=== PATIENT | male | born 1990 | race Caucasian/White ===

== ENCOUNTER → 2024-02-19 | Outpatient (BNVA) | payer MEDICAID, SELFPAY | END | disposition home or self-care (01) | PROVIDERS: PCP Physician Assistant; Referring Provider Physician Assistant; Visit Provider Urology | DX: N13.2 Hydronephrosis with renal and ureteral calculous obstruction (principal); N40.0 Benign prostatic hyperplasia without lower urinary tract symptoms; I10 Essential (primary) hypertension; Z87.442 Personal history of urinary calculi; E66.01 Morbid (severe) obesity due to excess calories; Z68.37 Body mass index [BMI] 37.0-37.9, adult; F17.210 Nicotine dependence, cigarettes, uncomplicated | CPT/HCPCS: 81003; 99212; G0463 ==

== ENCOUNTER 2024-03-05 10:45 | Day surgery (SDC) | payer MEDICAID, SELFPAY ==
[2024-03-04 10:59] VITALS: BMI 37.6
--- NOTE | 2024-03-04 11:21 | EKG_ITS ---
[facility] Test Date: 2024-03-04 Pat Name: JOSE C LINK Department: Room: - Gender: Male Corporate Training Manager: CAROLIN : 1990 Requested By: Sha Alicea Order Number: [id number] Reading MD: Sha Alicea Measurements Intervals [place] Rate: 74 P: 24 TN: 125 QRS: 38 QRSD: 97 T: 72 QT: 387 QTc: 430 Interpretive Statements SINUS RHYTHM Compared to ECG 03/03/2020 18:42:11 No significant changes /store/S0/[id number].pdf
[2024-03-04 13:45] LABS: Alanine Aminotransferase 34 U/L (10-49); Albumin, Serum 4.6 gm/dL (3.5-5.0); Albumin/Globulin Ratio 1.8 (1.2-2.2); Alkaline Phosphatase 113 U/L (46-116); Anion Gap 6 (7-16); Aspartate Amino Transferase 13 U/L (0-34); BUN/Creatinine Ratio 12 Ratio (12-20); Bilirubin,Total 0.9 mg/dL (0.3-1.2); Blood Urea Nitrogen 16 mg/dL (9-23); Calcium 9.5 mg/dL (8.3-10.6); Calcium (Corrected) 9.5 mg/dL (8.5-10.1); Carbon Dioxide 27.6 mMol/L (20.0-31.0); Chloride 106 mMol/L (98-107); Creatinine (Component) 1.3 mg/dL (0.6-1.3); Estimated Creatinine Clearance 109.8 mL/min (>60); Globulin 2.6 gm/dL (2.3-3.5); Glucose 100 mg/dL (74-106); Osmolality,Calculated 280 (275-295); Potassium 3.8 mMol/L (3.4-5.1); Sodium 140 mMol/L (136-145); Total Protein 7.2 gm/dL (5.7-8.2); eGFR > 60 See Note
[2024-03-05] VITALS (9 sets, daily range): BP systolic 125–143; BP diastolic 82–94; PULSE 60–80; RESP 12–20; TEMP 36.1–36.4; O2SAT 95–100; BMI 37.3
[2024-03-05] MEDS: RINGERS LACTATED 500 ML 500 ML 20 ML IV (11:13)
[2024-03-05] MEDS: VANCOMYCIN/NS 1 GM IVPB 200 ML IV (11:13)
--- NOTE | 2024-03-05 15:58 | SUR.PHASEI ---
pt received from OR in recovery bay 5. pt asleep but responds to voice, breathing unlabored on 6l oxymask. v/s stable. report received from Dr. Inman and Steve MONCADA.
--- NOTE | 2024-03-05 16:19 | ESOP_ITS ---
Date of Procedure 03/05/24 Pre Op Diagnosis Right hydronephrosis, 1.1 cm stone proximal ureter close to ureteropelvic junction right causing obstruction Post Op Diagnosis Same plus completely obstructive stone Procedure Cystoscopic examination, right retrograde pyelogram, attempted placement of right ureteral stent Findings Impacted right ureteral stone proximal near right UPJ, right hydronephrosis Procedure Description Indication for procedure this is 33-year-old gentleman this patient has a history of stone disease. He had impacted stone right proximal ureter in the past about 4 years ago, he had placement of percutaneous nephrostomy subsequently he had laser stone fragmentation done at [facility] by Dr. Lopez. Patient was recently seen because of right flank pain and was found to have 1.1 cm stone proximal ureter with hydronephrosis. I discussed with the patient about placement of percutaneous nephrostomy right side considering that he had a impacted stone previously and it may be difficult to insert the right ureteral stent . Patient did not entertain the idea of placement of percutaneous nephrostomy the other option I discussed with the patient was cystoscopy retrograde and possible placement right ureteral stent patient elected to go for placement of right ureteral stent I had explained to the patient if I am unable to place the stent than he will have to have a placement of percutaneous nephrostomy . Procedure and complications of, cystoscopy retrograde possible ureteroscopy and possible replacement of the right ureteral stent were discussed with the patient in detail and informed consent is obtained Patient was brought to the operating room in a satisfactory condition after appropriate premedication was put on the operating table in a spine position he was appropriately identified by the surgeon and operating room staff site and scope and indications of the procedure were discussed with the patient in great detail, next general anesthesia was given uneventfully next the patient was positioned in a dorsal lithotomy position parts were prepped and draped in the usual sterile fashion. 2% lidocaine was instilled into the urethra. A 21 cystoscope was used to do the cystourethroscopy. At this time patient received perioperative antibiotics and 20 mg of Lasix IV was given to prevent pyelocalyceal infectious complication. Examination of urethra was without any stricture prostatic urethra revealed BPH with bilobar prostatic hypertrophy examination of bladder in all the quadrant was carried out there was no tumor or stone or diverticula identified left ureteral orifice was effluxing clear urine there was no urine coming out of the right ureteral orifice. Next I passed the open-ended Pollick catheter into the right ureteral orifice retrograde pyelogram was performed there was no contrast going beyond the stone. I advanced the open-ended Pollick catheter up to the stone and did a retrograde no contrast was going beyond the stone. Through the open-ended Pollick catheter I tried to pass a Glidewire it was curling back after touching the ureteral stone in the proximal ureter ,nothing was going beyond the stone. At this time I aborted the procedure and the patient was sent to recovery room in a satisfactory condition he is going to need placement of percutaneous nephrostomy I have talked to Dr. Grant and radiology department and the patient will be scheduled for the placement of percutaneous nephrostomy right side tomorrow , after placement of percutaneous nephrostomy on the right side patient will be scheduled for cystoscopy retrograde pyelogram, ureteroscopy laser stone fragmentation and placement of right ureteral stent for second procedure. Anesthesia GETA Pathology / specimen None Estimated Blood Loss 0.5 Condition Stable Disposition PACU Surgeon Irene Caceres MD Surgical Staff Operation Date: 03/05/24 13:15 Case Staff Anesthesiologist: Gabriel Aaron Anesthesiologist: Micheal Inman
--- NOTE | 2024-03-05 16:33 | SUR.PHASEII ---
pt able to tolerate oral fluids without difficulty swallowing or nausea/vomiting.
--- NOTE | 2024-03-05 16:45 | SUR.PHASEII ---
report from nurse kang. pt preparing for discharge. urinated. tolerated po liquids. vss. breathing even and unlabored. denies pain and nausea.
--- NOTE | 2024-03-05 17:15 | SUR.PHASEII ---
pt discharged via wheel chair with all belongings. both patient and friend verbalize understanding of discharge instructions. signed by friend. vss. breathing even and unlabored. tolerate po liquids and urinated clear urine. pt to return to radiology tomorrow per dr baron for nephro tube placement.
== END 2024-03-05 17:15 | disposition home or self-care (01) ==
PROVIDERS: Anesthesiology; PCP Physician Assistant; Referring Provider Urology; Visit Provider Urology
PROC: 0TJB8ZZ Inspection of Bladder, Via Natural or Artificial Opening Endoscopic (ICD-10-PCS; CPT 52000; principal; 2024-03-05 13:00)
DX: N13.2 Hydronephrosis with renal and ureteral calculous obstruction (principal)
CPT/HCPCS: 52005; 36415; 76000; 80053; 93005; A4217; A4649; C1769; C1876; C1894; J1100; J1580; J1940; J2250; J2405; J2704; J3010; J3370; J3490; J7120

== ENCOUNTER 2024-03-07 07:41 | Outpatient (CLI) | payer MEDICAID, SELFPAY ==
[2024-03-07] VITALS (21 sets, daily range): BP systolic 116–149; BP diastolic 68–99; PULSE 57–83; RESP 16–24; TEMP 36.1–36.4; O2SAT 95–100; BMI 37.3
[2024-03-07 08:19] LABS: Basophils # (Auto) 0.1 Thou/mm3 (0.0-0.2); Basophils % (Auto) 1 % (0-2.5); Eosinophils # (Auto) 0.1 Thou/mm3 (0.0-0.5); Eosinophils % (Auto) 1 % (0-10); Hematocrit 42.2 % (41.0-53.0); Hemoglobin 14.9 g/dL (13.5-16.0); Immature Granulocytes % (Auto) 0 % (0-0); Immature Granulocytes Auto 0.04 Thou/mm3 (0.00-0.00); Lymphocytes # (Auto) 3.4 Thou/mm3 (1.0-4.8); Lymphocytes % (Auto) 37 % (10-50); Mean Corpuscular HGB Conc 35.3 g/dl (31.0-37.0); Mean Corpuscular Hemoglobin 28.8 pg (25.0-35.0); Mean Corpuscular Volume 82 fL (80-100); Monocytes # (Auto) 0.7 Thou/mm3 (0.0-0.8); Monocytes % (Auto) 7 % (0-12); Neutrophils # (Auto) 4.8 Thou/mm3 (1.8-7.7); Neutrophils % (Auto) 53 % (37-80); Nucleated Red Blood Cell % 0 /100 WBC (0); Platelet Count 188 Thou/mm3 (140-440); RDW Standard Deviation 39.8 fL (35.1-43.9); Red Blood Count 5.18 Miln/mm3 (4.50-5.90)
[2024-03-07 08:26] LABS: Blood Urea Nitrogen 20 mg/dL (9-23); Creatinine (Component) 1.4 mg/dL (0.6-1.3); eGFR > 60 See Note
--- NOTE | 2024-03-07 09:00 | XR_ITS ---
Examination: IR fluoroscopically guided placement right percutaneous nephrostomy drainage tube Fluoroscopy Right nephrostogram AP abdomen 5 views Ultrasound-guided needle access right renal collecting system Date and time of procedure: March 07, 2024 0918 hours INDICATIONS: Flank pain this week, CT abdomen pelvis February 03, 2024 moderate right hydronephrosis secondary to 12 mm proximal right ureteral calculus Informed consent provided. Technique and findings: Informed consent provided. Timeout performed. Skin prepped over the right flank and sterile drape applied maximum sterile barrier technique hand hygiene ultrasound sterile technique 1% lidocaine administered for local anesthesia Ultrasound utilized to confirm dilated right renal collecting system Ultrasound utilized for successful 21-gauge needle puncture into the dilated right renal collecting system 0.18 wire guide is introduced into the needle followed by 5 Maori catheter 0.35 wire guide is introduced through 5 Maori catheter into the proximal ureter Dilators placed over the wire guide followed by a 10 Maori 25 cm nephrostomy drainage catheter in proper position under fluoroscopic guidance with injection 5 cc Omnipaque 350 70 outline in the collecting system Fluoroscopy 1.8 minutes radiation dose 142.05 milligray 5 spot fluoroscopic abdomen films IMPRESSION: Successful IR fluoroscopically guided placement right percutaneous nephrostomy drainage tube Nephrostogram demonstrates satisfactory position of the nephrostomy tube
--- NOTE | 2024-03-07 09:04 | XR_ITS ---
Examination: Ultrasound localization right renal collecting system Exam date and time: March 07, 2024 0937 hours INDICATIONS: Onset right flank pain, moderate right hydronephrosis secondary to 12 mm proximal right ureteral calculus on CT abdomen pelvis February 03, 2024, preop nephrostomy TECHNIQUE AND FINDINGS: Sonographic images right kidney obtained for localization of the dilated renal collecting system for percutaneous nephrostomy to follow IMPRESSION: Sonographic images right kidney, preop for percutaneous nephrostomy
[2024-03-07 09:37] LABS: INR 0.9 (0.9-1.3); Partial Thromboplastin Time 26.5 Seconds (22.0-36.0); Prothrombin Time 10.3 Seconds (9.0-12.2)
[2024-03-07] MEDS: SODIUM CHLORIDE 0.9% 500 ML 500 ML 20 ML IV (09:40)
[2024-03-07] MEDS: fentaNYL CIT INJ 50 mCg/ML AMP 2ML 150 MCG IVP (10:30)
[2024-03-07] MEDS: LIDOCAINE INJ PF 1% 30 ML VIAL 16 ML INFL (10:32)
--- NOTE | 2024-03-07 11:47 | PC.NURSE ---
1111 patient is awake, alert, breathing unlabored, s/p right nephrostomy tube insertion by Dr. Vilchis. Dressing to right flank area dry with no bleeding, drainage bag draining clear red output. patient in [facility] worker bay 4 for 1hr recovery.
--- NOTE | 2024-03-07 12:06 | PC.NURSE ---
nephrostomy tube drained 100ml clear red output
--- NOTE | 2024-03-07 12:43 | PC.NURSE ---
Addendum entered by Cynthia Jacob RN 03/07/24 12:50: patient educated to call dr baron office for follow up care, go to ER if any emergency Original Note: patient is awake, alert, breathing unlabored, dressing to right flank dry with no bleeding, nephrostomy tube draining clear red output, pt educated on how to empty drainage bag. discharge instructions given to patient and friend Tamiko, patient discharged home in wheelchair with all belongings.
== END 2024-03-07 12:43 | disposition home or self-care (01) ==
PROVIDERS: Radiology Diagnostic Radiology; PCP Physician Assistant; Referring Provider Urology; Visit Provider Urology
DX: N13.30 Unspecified hydronephrosis (principal)
CPT/HCPCS: 50433; 36415; 82565; 84520; 85025; 85610; 85730; C1729; C1769; J3010; J3490; J7040; J7050; Q9958

== ENCOUNTER 2024-03-13 18:55 | Emergency (ER) | payer MEDICAID, SELFPAY ==
[2024-03-13 18:55] VITALS: BMI 36.6
[2024-03-13 19:41] VITALS: BP 164/96; PULSE 63; RESP 20; TEMP 36.8; O2SAT 95
--- NOTE | 2024-03-13 19:58 | PD.EDRME ---
Rapid Medical Screening Exam E Arrival date/time: 03/13/24 18:55 33M with history of HTN and recent nephorostomy tube due to kidney stone presents to ED with R flank pain and nephrostomy tube not draining. Chief Complaint: General Adult/Misc Complain Vital signs: Vital Signs Temperature 98.2 F 03/13/24 19:41 Pulse Rate 63 03/13/24 19:41 Respiratory Rate 20 03/13/24 19:41 Blood Pressure 164/96 H 03/13/24 19:41 Pulse Oximetry (%) 95 03/13/24 19:41 Oxygen Delivery Method Room Air 03/13/24 19:41
[2024-03-13 21:57] VITALS: BP 143/78; PULSE 77; RESP 23; O2SAT 96
--- NOTE | 2024-03-13 22:28 | XR_ITS ---
Examination: Retroperitoneal ultrasound, complete Technique: Multiple high resolution grayscale images of the retroperitoneum obtained, including kidneys and bladder. Exam date and time:March 13, 2024 11:52 PM Indications: History right nephrostomy March 07, 2024, discomfort in the area of the nephrostomy Findings: Right kidney 13.2 x 7.7 x 7.0 cm Mild right hydronephrosis Left kidney obscured by bowel gas Contracted urinary bladder Impression: Severely limited study Mild right hydronephrosis
--- NOTE | 2024-03-13 22:30 | PD.EDADULT ---
ED General RME/HPI General Chief complaint: General Adult/Misc Complain Stated complaint: NEPHROSTOMY TUBE PLUGGED Time Seen by Provider: 03/14/24 05:59 Source: patient and family Arrival date/time: 03/13/24 18:55 Mode of arrival: ambulatory Limitations: no limitations RME / HPI RME / HPI narrative: 03/13/24 18:55 33M with history of HTN and recent nephorostomy tube due to kidney stone presents to ED with R flank pain and nephrostomy tube not draining. DR VILLA MAIN ED EVALUATION: 33-year-old male who presents to the emergency department for malfunction of his nephrostomy tube as it does not appear to be draining. He also reports right flank pain. Denies any other medical complaints or associated symptoms. Review of the record shows patient had pre op diagnosis of right hydronephrosis, 1.1 cm stone proximal ureter close to ureteropelvic junction right causing obstruction leading to procedure of cystoscopic examination, right retrograde pyelogram, attempted placement of right ureteral stent by Dr. Caceres on 03/05/24. Overall findings were impacted right ureteral stone proximal near right UPJ, right hydronephrosis. Related Data Home Medications ?Medication ?Instructions ?Recorded ?Confirmed cephalexin 500 mg capsule 500 mg PO TID 03/04/24 03/07/24 hydrochlorothiazide 25 mg tablet 25 mg PO QDAY 03/04/24 03/07/24 lisinopril 10 mg tablet 10 mg PO QDAY 03/04/24 03/07/24 ondansetron 4 mg disintegrating 4 mg PO TID PRN Nausea And Vomiting 03/04/24 03/07/24 tablet Previous Rx's ?Medication ?Instructions ?Recorded tamsulosin 0.4 mg capsule (Flomax) 0.4 mg PO QDAY #7 caps 02/03/24 hydrocodone 7.5 mg-acetaminophen 1 tab PO TID PRN pain #20 tabs 03/05/24 325 mg tablet cefdinir 300 mg capsule 300 mg PO BID #14 caps 03/14/24 Allergies Allergy/AdvReac Type Severity Reaction Status Date / Time clindamycin Allergy Difficulty Verified 03/07/24 09:29 Swallowing Review of Systems Review of Systems Systems Reviewed: All systems reviewed, normal except as documented Past Medical History Past Medical History NEUROLOGIC: Negative Neurological Disorders or Seizures CARDIAC: Positive Cardiac Disorders and Hypertension; Negative Congestive Heart Failure RESPIRATORY: Negative Chronic Obstructive Pulmonary Disease (COPD), Asthma, Pneumonia, Tuberculosis or Sleep Apnea GASTROINTESTINAL: Positive Obesity; Negative Gastrointestinal Disorders or Hepatitis GENITOURINARY: Positive Genitourinary Disorders and Kidney Stones; Negative Renal Disease MUSCULOSKELETAL: Positive Musculoskeletal Disorders and Fractures (RIBS IN THE PAST) ENDOCRINE: Negative Endocrine Disorders, Diabetes Mellitus Type 1 or Diabetes Mellitus Type 2 HEMATOLOGIC: Negative Blood Disorders or Sickle Cell Disease OTHER HISTORY: Negative Hospitalization, Autoimmune Disease, Shingles, Falls, Blood Transfusions, Blood Transfusion Reaction, Anesthesia Reactions, Chemotherapy, Radiation Therapy, MRSA, Chicken Pox, Measles, Mumps or Cancer Family History FAMILY HISTORY: Positive Family Cancer and Family Surgery; Negative Family Psychiatric Problems, Family Respiratory Disorders, Family Cardiac Disorders, Family Gastrointestinal Problems or Family Anesthesia Reaction Social History SMOKING STATUS: Current some day smoker SECOND HAND EXPOSURE: No ED Exam Narrative Physical exam: GENERAL APPEARANCE: alert and oriented x 4, well-developed, well-nourished, no acute distress VITALS: All vitals were reviewed and the pulse ox is 96% on room air, which is normal according to my interpretation. HEENT: Normocephalic, atraumatic; pupils equal, round, reactive to light; EOMI; mucous membranes pink, moist; oropharynx clear NECK: Supple LUNGS: CTABL; no wheezes, no rales, no rhonchi HEART: Regular rate, regular rhythm; normal S1, S2; no murmurs ABDOMEN: non distended; normal BS; soft, no tenderness, no guarding, no rebound; no masses, no organomegaly, no hernia BACK: no CVA tenderness EXTREMITIES: atraumatic; no edema NEUROLOGIC: awake; alert and oriented x4; cranial nerves II-XII grossly intact; no focal sensory or motor deficits PSYCHIATRIC: appropriate mood and affect SKIN: warm, dry, normal color; no rashes General Limitations: Present no limitations Course Quality Measures none Orders Category Date Time Status CT abdomen pelvis wo con Stat Exams 03/14/24 02:07 Completed IR nephrostomy tube change Stat Exams 03/14/24 Completed US renal BI Stat Exams 03/13/24 22:28 Completed CBC Stat Lab 03/14/24 06:20 Completed CMP [Comprehensive Metabolic Panel] Stat Lab 03/14/24 06:20 Completed Magnesium Stat Lab 03/14/24 06:20 Completed PT [Prothrombin Time with INR] Stat Lab 03/14/24 08:08 Completed Partial Thromboplastin Time Stat Lab 03/14/24 08:08 Completed UA [Urinalysis] Stat Lab 03/14/24 06:24 Completed Heparin Sod Lock Syr [Hep-Lock 100 UNIT/ML SYR] Med 03/14/24 09:22 Discontinued 500 unit .ROUTE .STK-MED ONE Heparin Sod Lock Syr [Hep-Lock 100 UNIT/ML SYR] Med 03/14/24 10:00 Discontinued 500 unit IV X1 ONE Lidocaine 1% Pf 30 ml [Xylocaine 1% Pf 30 ml] Med 03/14/24 09:22 Discontinued 30 ml .ROUTE .STK-MED ONE Lidocaine 1% Pf 30 ml [Xylocaine 1% Pf 30 ml] Med 03/14/24 10:00 Discontinued 8 ml INFL X1 ONE NALOXONE INJ (Vial) [Narcan Inj (Vial)] Med 03/14/24 09:36 Discontinued 0.4 mg .ROUTE .STK-MED ONE Ondansetron Inj [Zofran Inj] Med 03/14/24 09:36 Discontinued 4 mg .ROUTE .STK-MED ONE cefTRIAXone/D5w 1gm IV premix [Rocephin/D5w 1gm IV Med 03/14/24 09:31 Discontinued premix] 50 ml IV X1 fentaNYL INJ [Sublimaze Inj] Med 03/14/24 10:00 Discontinued 125 mcg IVP X1 ONE fentaNYL INJ [Sublimaze Inj] Med 03/14/24 09:35 Discontinued 200 mcg .ROUTE .STK-MED ONE Vital Signs Vital signs: Vital Signs Temperature 98.2 F 03/13/24 19:41 Pulse Rate 63 03/13/24 19:41 Respiratory Rate 20 03/13/24 19:41 Blood Pressure 164/96 H 03/13/24 19:41 Pulse Oximetry (%) 95 03/13/24 19:41 Oxygen Delivery Method Room Air 03/13/24 19:41 [facility] Patient data External records reviewed:: [facility] previous records Clinical information provided by:: patient and tip length checker Social determinants that could affect healthcare access:: none Patient has the following chronic illnesses:: See HPI How is presenting disease/condition affected by chronic disease/condition?: caused by Evaluation data The following diagnostics were reviewed and interpreted by me:: radiology exam(s) Lab and/or radiology exams considered but not ordered:: Labs Interpretation Summary: I personally reviewed the radiology data and agree with the radiologist's interpretation. Renal/Retroperitoneal ultrasound. March 13, 2024 at 2352 hours Clinical history: Right nephrostomy tube. Findings: Right: The right kidney measures 13.2 x 7.7 x 7 cm with cortical thickness of 2.6 cm. There is mild to moderate hydronephrosis. There is no renal calculus. The corticomedullary differentiation is maintained. Left: The left kidney is obscured by bowel gas and is not evaluated on this examination. The urinary bladder is not well distended. Impression: Mild to moderate right hydronephrosis. Left kidney is obscured by bowel gas and is not evaluated on this examination. Report Electronically Signed By: Abdi Diallo 03/14/2024 1:56:31 AM [EST] CT abdomen and pelvis without intravenous contrast (axial sections with sagittal and coronal reformats) March 14, 2024 at 0226 hours Clinical History: Nephrostomy tube evaluation. Reference is made to the prior report dated February 11, 2024. Prior images not available. Findings: Bibasilar subsegmental atelectasis. Right nephrostomy catheter is seen with its tip outside the right kidney in the right perinephric space.There is a 1.2 cm calculus in the right mid ureter with moderate hydroureteronephrosis. There is a small gallstone.The liver, spleen, pancreas and adrenals are unremarkable on this noncontrast study. No evidence of bowel dilatation. Moderate amount of fecal material is present in the colon.The appendix is within normal limits . The urinary bladder is unremarkable. There is no free air or fluid. There is a small fat-containing left inguinal hernias. The osseous structures are unremarkable. Impression: Right nephrostomy catheter with its tip outside the right kidney in the right perinephric space. Recommend repositioning. 1.2 cm calculus in the right mid ureter with moderate hydroureteronephrosis. Cholelithiasis. Other findings as described above. Report Electronically Signed By: Abdi Diallo 03/14/2024 3:39:35 AM [EST] Medications Medications considered but not ordered:: None Medication administrations:: Medication Administration History Discontinued Medications Fentanyl Citrate (Fentanyl Cit Inj 50 Mcg/Ml Amp 2ml) Confirm Administered Dose 200 mcg .ROUTE .STK-MED ONE Stop: 03/14/24 09:36 Last Admin: 03/14/24 10:51 Dose: Not Given Documented By: EF Non-Admin Reason: Override Medication Fentanyl Citrate (Fentanyl Cit Inj 50 Mcg/Ml Amp 2ml) 125 mcg IVP X1 ONE Stop: 03/14/24 10:01 Last Admin: 03/14/24 10:19 Dose: 125 mcg Documented By: EG Heparin Sodium (Beef Lung) (Heparin Sod Lock Syr 100 Unit/Ml) Confirm Administered Dose 500 unit .ROUTE .STK-MED ONE Stop: 03/14/24 09:23 Last Admin: 03/14/24 10:50 Dose: Not Given Documented By: EF Non-Admin Reason: Discontinued Heparin Sodium (Beef Lung) (Heparin Sod Lock Syr 100 Unit/Ml) 500 unit IV X1 ONE Stop: 03/14/24 10:01 Last Admin: 03/14/24 10:19 Dose: 500 unit Documented By: EG Comments: to sterile field Ceftriaxone Sodium/Dextrose (Rocephin/D5w 1gm Iv Premix) 50 mls @ 100 mls/hr IV X1 ONE Stop: 03/14/24 10:00 Last Infusion: 03/14/24 11:30 Dose: Infused Documented By: Admin: 03/14/24 11:01 Dose: 100 mls/hr Documented By: EF Lidocaine HCl (Lidocaine Inj Pf 1% 30 Ml Vial) Confirm Administered Dose 30 ml .ROUTE .STK-MED ONE Stop: 03/14/24 09:23 Last Admin: 03/14/24 10:50 Dose: Not Given Documented By: EF Non-Admin Reason: Discontinued Lidocaine HCl (Lidocaine Inj Pf 1% 30 Ml Vial) 8 ml INFL X1 ONE Stop: 03/14/24 10:01 Last Admin: 03/14/24 10:20 Dose: 8 ml Documented By: EG Comments: administered by dr. kaiser Naloxone HCl (Naloxone Inj 0.4 Mg/Ml Vial) Confirm Administered Dose 0.4 mg .ROUTE .STK-MED ONE Stop: 03/14/24 09:37 Last Admin: 03/14/24 10:51 Dose: Not Given Documented By: EF Non-Admin Reason: Discontinued Ondansetron HCl (Ondansetron Inj 2 Mg/Ml Inj 2 Ml) Confirm Administered Dose 4 mg .ROUTE .STK-MED ONE Stop: 03/14/24 09:37 Last Admin: 03/14/24 10:51 Dose: Not Given Documented By: EF Non-Admin Reason: Discontinued As above, if any Consultations Consultation(s) initiated? (list below): No Diagnosis Differential Diagnosis ED Complaint MDM: uti, pyelonephritis, displacement of nephrostomy Most likely diagnosis given after review of the tests above:: displaced nephrostomy tube Admission Indicated Admission indicated?: not indicated Explain why admission is indicated or not indicated:: Pending remaining work-up Admission Request Was there a request for admission?: No Disposition Plan Disposition Plan: other (specify) (Sign-out) Medical Decision Making MDM Narrative MDM Narrative: 0600: [facility]. Past medical, surgical, social and family history reviewed. Vitals and home medications reviewed. They will assume the care of the patient at this time, pending IR nephrostomy tube change and final dispo. Scribe Attestation: I, Eric Mitchell, am scribing for and in the presence of Dr. Villa. Provider Notation: Although this document has been carefully reviewed, there may still be some phonetic and other typographical errors. These errors are purely grammatical due to imperfections in the software program and should not be construed in any way to compromise the substance of the patient's medical care during this visit. Differential Diagnosis Differential Diagnosis: uti, pyelonephritis, displacement of nephrostomy Medical Records Medical records reviewed: Yes I reviewed the patient's medical records. Lab Data 03/14/24 06:20 03/14/24 06:20 Labs: Lab Results 03/14/24 03/14/24 03/14/24 Range/Units 06:20 06:24 08:08 WBC 9.2 (3.8-10.6) Thou/mm3 RBC 5.53 (4.50-5.90) Miln/mm3 Hgb 15.7 (13.5-16.0) g/dL Hct 45.0 (41.0-53.0) % MCV 81 (80-100) fL MCH 28.4 (25.0-35.0) pg MCHC 34.9 (31.0-37.0) g/dl RDW Std Deviation 39.0 (35.1-43.9) fL Plt Count 200 (140-440) Thou/mm3 Neut % (Auto) 57 (37-80) % Lymph % (Auto) 30 (10-50) % [place] % (Auto) 9 (0-12) % Eos % (Auto) 3 (0-10) % Baso % (Auto) 1 (0-2.5) % Neut # (Auto) 5.3 (1.8-7.7) Thou/mm3 Lymph # (Auto) 2.7 (1.0-4.8) Thou/mm3 [place] # (Auto) 0.8 (0.0-0.8) Thou/mm3 Eos # (Auto) 0.3 (0.0-0.5) Thou/mm3 Baso # (Auto) 0.1 (0.0-0.2) Thou/mm3 Immature Gran # (Auto) 0.07 H (0.00-0.00) Thou/mm3 Absolute Nucleated RBC 0.00 (0.00-0.00) Thou/mm3 Immature Gran % 1 H (0-0) % Nucleated RBC % 0 (0) /100 WBC PT 10.5 (9.0-12.2) Seconds INR 1.0 (0.9-1.3) APTT 29.4 (22.0-36.0) Seconds Sodium 137 (136-145) mMol/L Potassium 4.0 (3.4-5.1) mMol/L Chloride 104 (98-107) mMol/L Carbon Dioxide 26.5 (20.0-31.0) mMol/L Anion Gap 7 (7-16) BUN 21 (9-23) mg/dL Creatinine 1.1 (0.6-1.3) mg/dL Estim Creat Clear Calc 127.9 (>60) mL/min eGFR > 60 (60 - ) See Note BUN/Creatinine Ratio 19 (12-20) Ratio Glucose 95 (74-106) mg/dL Calculated Osmolality 276 (275-295) Calcium 9.4 (8.3-10.6) mg/dL Corrected Calcium 9.4 (8.5-10.1) mg/dL Magnesium 1.8 (1.6-2.6) mg/dL Total Bilirubin 0.6 (0.3-1.2) mg/dL AST 10 (0-34) U/L ALT 37 (10-49) U/L Alkaline Phosphatase 130 H (46-116) U/L Total Protein 7.0 (5.7-8.2) gm/dL Albumin 4.5 (3.5-5.0) gm/dL Globulin 2.5 (2.3-3.5) gm/dL Albumin/Globulin Ratio 1.8 (1.2-2.2) Ur Collection Type Clean Catch Urine Color Lt-Yellow (Lt Yel-Yel) Urine Clarity Clear (Clear/Hazy) Urine pH 6.5 (5.0-7.0) Ur Specific [place] 1.012 (1.001-1.035) Urine Protein 1+ A (Neg - Trace) Urine Glucose (UA) Negative (Negative) Urine Ketones Negative (Negative) Urine Blood 3+ A (Negative) Urine Nitrite Negative (Negative) Urine Bilirubin Negative (Negative) Urine Urobilinogen (Auto) Negative (0.0-1.0) mg/dL Ur Leukocyte Esterase Positive (Negative) Urine RBC 162 H (0-3) /hpf Urine WBC 10 H (0-5) /hpf Ur Squamous Epith Cells 0 (0-5) /hpf Urine Bacteria 1+ A (None) Radiology Data Radiology results reviewed: Yes I reviewed the patient's radiology results. Discharge Plan Plan Patient Disposition: HOME (Self Care) Prescriptions/Referrals Prescriptions/Med Rec: New cefdinir 300 mg capsule 300 mg PO BID Qty: 14 0RF No Action tamsulosin [Flomax] 0.4 mg capsule 0.4 mg PO QDAY Qty: 7 0RF lisinopril 10 mg tablet 10 mg PO QDAY Patient Comments: TAKE 1 TABLET BY MOUTH EVERY DAY hydrochlorothiazide 25 mg tablet 25 mg PO QDAY Patient Comments: TAKE 1 TABLET BY MOUTH EVERY DAY IN THE MORNING ondansetron 4 mg tablet,disintegrating 4 mg PO TID PRN (Reason: Nausea And Vomiting) Patient Comments: 4 MG ORALLY EVERY 8 HOURS NEEDED FOR NAUSEA AND VOMITING Rx Instructions: Q8 H PRN cephalexin 500 mg capsule 500 mg PO TID hydrocodone-acetaminophen 7.5-325 mg tablet 1 tab PO TID MDD 4 PRN (Reason: pain) Qty: 20 0RF Referrals: Rosaline Arenas PA-C [Primary Care Provider] - In 1 week Problem List Clinical Impression: Displacement of nephrostomy tube, UTI (urinary tract infection) Patient/Caregiver Discharge Instructions Discharge Activity: activity as tolerated Education Materials: ED Bladder Infection, Male (Adult) Additional Instructions: Discharge instructions from Dr. Fagan: 1. Fortunately, our interventional radiologist successfully replaced your nephrostomy tube. 2. Take cefdinir to kill the germs causing your UTI.? Increase oral fluid to flush it out.? Maintain clear urine.? If dark or yellow, increase oral fluid. 3. See a private doctor on 03/17/2024. Ask to check the final urine culture results, to make sure cefdinir doesn't need to be changed due to resistance. 4. Seek immediate medical care with worsening, fever, or with any concerns. Print Language: Mozambican Stand Alone Forms: Leann Award Info., Patient Portal Info Letter
[2024-03-14] VITALS (13 sets, daily range): BP systolic 111–145; BP diastolic 70–108; PULSE 58–80; RESP 13–22; TEMP 36.7–36.8; O2SAT 90–99
--- NOTE | 2024-03-14 | XR_ITS ---
Examination: IR fluoroscopically guided placement right nephrostomy drainage tube Right nephrostogram Fluoroscopy AP abdomen single view Exam date and time: March 14, 2024 0910 hours INDICATIONS: History right significant hydronephrosis secondary to 12 mm proximal right ureteral calculus Nephrostomy placement March 07, 2024, nephrostomy tube pulled out on CT abdomen pelvis study March 14, 2024 0226 hours TECHNIQUE AND FINDINGS: Informed consent provided. Timeout performed. Skin prepped over the entrance site of the partially pulled out nephrostomy drainage catheter, hand hygiene catheter and gown with sterile technique 1% lidocaine administered for local anesthesia Utilizing fluoroscopic guidance successful 21-gauge needle placement into the dilated right renal collecting system 0.18 wire guide is introduced through the needle followed by 5 Latvian catheter 0.35 wire guide and dilator is followed by 10 [place]ian nephrostomy drainage catheter in proper position Hand-injection 10 cc Cystografin demonstrates satisfactory position of the nephrostomy drainage catheter Estimated blood loss 2 cc Patient instable condition at completion procedure Fluoroscopy 1.2 minutes radiation dose 124.57 milligray 1 spot fluoroscopic abdomen films IMPRESSION: Successful IR fluoroscopically guided placement right percutaneous nephrostomy drainage tube
--- NOTE | 2024-03-14 01:57 | PRELIM_ITS ---
Renal/Retroperitoneal ultrasound. March 13, 2024 at 2352 hours Clinical history: Right nephrostomy tube. Findings:Right: The right kidney measures 13.2 x 7.7 x 7 cm with cortical thickness of 2.6 cm. There is mild to moderate hydronephrosis. There is no renal calculus. The corticomedullary different iation is maintained.Left: The left kidney is obscured by bowel gas and is not evaluated on this exam ination. The urinary bladder is not well distended. Impression:Mild to moderate right hydronephrosis. Left kidney is obscured by bowel gas and is not evaluated on this examination. Report Electronically Signed By: Abdi Diallo 03/14/2024 1:56:31 AM [EST]
--- NOTE | 2024-03-14 02:07 | XR_ITS ---
Examination: CT abdomen and pelvis without contrast. Coronal 3-D reconstructions. Sagittal 2-D reconstructions. Date and time of exam:March 14, 2024 0226 hrs. Comparison February 03, 2024 Indications: Nephrostomy tube not working and painful CTDI: vol (mGy): 14.7 DLP: (mGycm): 1052 Technique: Axial images of the abdomen have been obtained, 3 mm slice thickness Intravenous contrast material has not been administered. Low dose protocols were performed. One or more of the following dose reduction techniques were used; automated exposure control, adjustment of the mA and/or KV according to patient size, use of iterative reconstruction technique. Findings: Atelectasis versus pneumonia right base No renal or ureteral calculi Cholelithiasis No pancreatic mass The patient's right nephrostomy tube has been pulled out of the renal collecting system There remains a 12 mm proximal right ureteral calculus Normal appendix No bowel obstruction Intact urinary bladder Impression: The patient's right nephrostomy tube has been pulled out
--- NOTE | 2024-03-14 03:40 | PRELIM_ITS ---
CT abdomen and pelvis without intravenous contrast (axial sections with sagittal and coronal reformat s) March 14, 2024 at 0226 hoursClinical History: Nephrostomy tube evaluation.Reference is made to the prior report dated February 11, 2024. Prior images not available.Findings:Bibasilar subsegmental atelectasis.Right nephrostomy catheter is seen with its tip outside the right kidney in the right per inephric space.There is a 1.2 cm calculus in the right mid ureter with moderate hydroureteronephrosi s.There is a small gallstone.The liver, spleen, pancreas and adrenals are unremarkable on this noncon trast study. No evidence of bowel dilatation. Moderate amount of fecal material is present in the col on.The appendix is within normal limits . The urinary bladder is unremarkable. There is no free air o r fluid. There is a small fat-containing left inguinal hernias.The osseous structures are unremarkabl e.Impression:Right nephrostomy catheter with its tip outside the right kidney in the right perinephri c space. Recommend repositioning.1.2 cm calculus in the right mid ureter with moderate hydroureteron ephrosis.Cholelithiasis.Other findings as described above. Report Electronically Signed By: Abdi kessler 03/14/2024 3:39:35 AM [EST]
[2024-03-14 06:29] LABS: Collection Type, Urine Clean Catch; Squamous Epithelial Cell,Urine 0 /hpf (0-5)
[2024-03-14 06:49] LABS: Basophils # (Auto) 0.1 Thou/mm3 (0.0-0.2); Basophils % (Auto) 1 % (0-2.5); Eosinophils # (Auto) 0.3 Thou/mm3 (0.0-0.5); Eosinophils % (Auto) 3 % (0-10); Hemoglobin 15.7 g/dL (13.5-16.0); Immature Granulocytes % (Auto) 1 % (0-0); Immature Granulocytes Auto 0.07 Thou/mm3 (0.00-0.00); Lymphocytes # (Auto) 2.7 Thou/mm3 (1.0-4.8); Lymphocytes % (Auto) 30 % (10-50); Mean Corpuscular HGB Conc 34.9 g/dl (31.0-37.0); Mean Corpuscular Hemoglobin 28.4 pg (25.0-35.0); Mean Corpuscular Volume 81 fL (80-100); Monocytes # (Auto) 0.8 Thou/mm3 (0.0-0.8); Monocytes % (Auto) 9 % (0-12); Neutrophils # (Auto) 5.3 Thou/mm3 (1.8-7.7); Neutrophils % (Auto) 57 % (37-80); Nucleated Red Blood Cell % 0 /100 WBC (0); Platelet Count 200 Thou/mm3 (140-440); Red Blood Count 5.53 Miln/mm3 (4.50-5.90); White Blood Count 9.2 Thou/mm3 (3.8-10.6)
[2024-03-14 07:01] LABS: Alanine Aminotransferase 37 U/L (10-49); Albumin, Serum 4.5 gm/dL (3.5-5.0); Albumin/Globulin Ratio 1.8 (1.2-2.2); Alkaline Phosphatase 130 U/L (46-116); Anion Gap 7 (7-16); Aspartate Amino Transferase 10 U/L (0-34); BUN/Creatinine Ratio 19 Ratio (12-20); Bilirubin,Total 0.6 mg/dL (0.3-1.2); Blood Urea Nitrogen 21 mg/dL (9-23); Calcium 9.4 mg/dL (8.3-10.6); Calcium (Corrected) 9.4 mg/dL (8.5-10.1); Carbon Dioxide 26.5 mMol/L (20.0-31.0); Chloride 104 mMol/L (98-107); Creatinine (Component) 1.1 mg/dL (0.6-1.3); Estimated Creatinine Clearance 127.9 mL/min (>60); Globulin 2.5 gm/dL (2.3-3.5); Glucose 95 mg/dL (74-106); Magnesium 1.8 mg/dL (1.6-2.6); Osmolality,Calculated 276 (275-295); Sodium 137 mMol/L (136-145); eGFR > 60 See Note
--- NOTE | 2024-03-14 07:30 | PD.EDADDENDU ---
Emergency Room Addendum <Gwen Tomlin - Last Filed: 03/14/24 12:29> Addendum Narrative: 0600: Care assumed from Dr. Villa, the previous shift emergency physician. Past medical, surgical, social and family history reviewed. Vitals and home medications reviewed. I will assume the care of the patient at this time, pending IR nephrostomy tube change and final disposition. Please refer to the emergency department record for history and examination from initial visit.? Nursing notes reviewed by me. Vital signs reviewed by me. [facility] medical records reviewed by me. <Praveen Fagan MD - Last Filed: 03/14/24 15:43> Addendum Narrative: 0600: Care assumed from Dr. Villa, the previous shift emergency physician. Past medical, surgical, social and family history reviewed. Vitals and home medications reviewed. I will assume the care of the patient at this time, pending IR nephrostomy tube change and final disposition. Please refer to the emergency department record for history and examination from initial visit.? Nursing notes reviewed by me. Vital signs reviewed by me. [facility] medical records reviewed by me. Diagnostic tests remarkable for UTI, Rocephin 1 g IV given. Our IR successfully replaced dislodged nephrostomy tube. Discharge instructions from Dr. Fagan: 1. Fortunately, our interventional radiologist successfully replaced your nephrostomy tube. 2. Take cefdinir to kill the germs causing your UTI.? Increase oral fluid to flush it out.? Maintain clear urine.? If dark or yellow, increase oral fluid. 3. See a private doctor on 03/17/2024. Ask to check the final urine culture results, to make sure cefdinir doesn't need to be changed due to resistance. 4. Seek immediate medical care with worsening, fever, or with any concerns.
[2024-03-14 09:12] LABS: Partial Thromboplastin Time 29.4 Seconds (22.0-36.0); Prothrombin Time 10.5 Seconds (9.0-12.2)
[2024-03-14 09:14] LABS: Bacteria,Urine 1+; Bilirubin,Urine Negative (Negative); Blood,Urine 3+ (Negative); Clarity,Urine Clear (Clear/Hazy); Color,Urine Lt-Yellow (Lt Yel-Yel); Glucose, Urine Negative (Negative); Ketones,Urine Negative (Negative); Leukocyte Esterase,Urine Positive (Negative); Nitrite,Urine Negative (Negative); PH,Urine 6.5 (5.0-7.0); Protein,Urine 1+ (Neg - Trace); RBC,Urine 162 /hpf (0-3); Specific Gravity,Urine 1.012 (1.001-1.035); Urobilinogen,Urine Negative mg/dL (0.0-1.0); WBC,Urine 10 /hpf (0-5)
[2024-03-14] MEDS: fentaNYL CIT INJ 50 mCg/ML AMP 2ML 125 MCG IVP (10:19)
[2024-03-14] MEDS: HEPARIN SOD LOCK SYR 100 UNIT/ML 500 UNIT IV (10:19)
[2024-03-14] MEDS: LIDOCAINE INJ PF 1% 30 ML VIAL 8 ML INFL (10:20)
--- NOTE | 2024-03-14 10:52 | PC.NURSE ---
report from [facility] patient got a 10f nephrostomy tube properly placed meds given was 125 fentanyl
[2024-03-14] MEDS: cefTRIAXone/D5w 1gm IV premix 50 ML IV (11:01)
== END 2024-03-14 13:35 | disposition home or self-care (01) ==
PROVIDERS: Radiology Diagnostic Radiology; Emergency Provider Emergency Medicine; PCP Physician Assistant
DX: T83.022A Displacement of nephrostomy catheter, initial encounter (principal); N13.6 Pyonephrosis; Y84.8 Other medical procedures as the cause of abnormal reaction of the patient, or of later complication, without mention of misadventure at the time of the procedure
CPT/HCPCS: 50435; 36415; 74176; 75984; 76770; 80053; 81001; 83735; 85025; 85610; 85730; 96365; 99284; C1729; J0696; J1642; J3010; J3490; Q9963

== ENCOUNTER → 2024-04-15 | Outpatient (BNVA) | payer MEDICAID, SELFPAY | END | disposition home or self-care (01) | PROVIDERS: PCP Physician Assistant; Referring Provider Physician Assistant; Visit Provider Urology | DX: N40.0 Benign prostatic hyperplasia without lower urinary tract symptoms (principal); N20.1 Calculus of ureter; E66.01 Morbid (severe) obesity due to excess calories; Z68.37 Body mass index [BMI] 37.0-37.9, adult; Z87.442 Personal history of urinary calculi; I10 Essential (primary) hypertension; F17.210 Nicotine dependence, cigarettes, uncomplicated | CPT/HCPCS: 81003; 99212; G0463 ==

== ENCOUNTER 2024-04-19 17:53 | Emergency (ER) | payer MEDICAID, SELFPAY ==
[2024-04-19 17:55] VITALS: BMI 40.6
[2024-04-19 18:34] VITALS: BP 136/83; PULSE 94; RESP 19; TEMP 36.9; O2SAT 95
--- NOTE | 2024-04-19 18:45 | PD.EDRME ---
Rapid Medical Screening Exam RME Arrival date/time: 04/19/24 17:53 33 year old male present to ED for c/o of nephro stent is blocked for 3 days. I have greeted and performed a focused initial assessment of this patient. A comprehensive ED assessment and evaluation of the patient, analysis of all test results, and completion of the medical decision making process will be conducted by additional ED providers. Chief Complaint: General Adult/Misc Complain Time Seen by Provider: 04/19/24 18:12 Vital signs: Vital Signs Temperature 98.4 F 04/19/24 18:34 Pulse Rate 94 04/19/24 18:34 Respiratory Rate 19 04/19/24 18:34 Blood Pressure 136/83 H 04/19/24 18:34 Pulse Oximetry (%) 95 04/19/24 18:34 Oxygen Delivery Method Room Air 04/19/24 18:34
[2024-04-19 19:14] LABS: Collection Type, Urine Clean Catch
[2024-04-19 19:29] LABS: Bacteria,Urine Rare; Bilirubin,Urine Negative (Negative); Blood,Urine 1+ (Negative); Clarity,Urine Clear (Clear/Hazy); Color,Urine Lt-Yellow (Lt Yel-Yel); Glucose, Urine Negative (Negative); Ketones,Urine Negative (Negative); Leukocyte Esterase,Urine Positive (Negative); Nitrite,Urine Negative (Negative); PH,Urine 6.5 (5.0-7.0); Protein,Urine 1+ (Neg - Trace); RBC,Urine 75 /hpf (0-3); Squamous Epithelial Cell,Urine 1 /hpf (0-5); Urobilinogen,Urine Negative mg/dL (0.0-1.0); WBC,Urine 63 /hpf (0-5)
--- NOTE | 2024-04-19 19:59 | XR_ITS ---
Examination: CT abdomen and pelvis without contrast. Coronal 3-D reconstructions. Sagittal 2-D reconstructions. Date and time of exam:April 19, 2024 2018 hrs. Indications: Flank pain indications the patient's nephrostomy tube beginning 3 days ago Comparison: March 14, 2024 CTDI: vol (mGy): 17.1 DLP: (mGycm): 1147 Technique: Axial images of the abdomen have been obtained, 3 mm slice thickness Intravenous contrast material has not been administered. Low dose protocols were performed. One or more of the following dose reduction techniques were used; automated exposure control, adjustment of the mA and/or KV according to patient size, use of iterative reconstruction technique. Findings: Atelectasis in the lingular segment Small right pleural effusion No focal liver or splenic lesions Gallstones No pancreatic mass Right percutaneous nephrostomy tube satisfactory position No hydronephrosis Aorta normal size Persistent 12 mm proximal right ureteral calculus Normal appendix No bowel obstruction Contracted urinary bladder No significant prostatomegaly Small fat-containing left inguinal hernia Impression: Right percutaneous nephrostomy tube satisfactory position with no significant hydronephrosis
[2024-04-19 20:25] LABS: Collection Type, Urine Catheter
[2024-04-19 20:47] LABS: Bacteria,Urine 3+; Bilirubin,Urine Negative (Negative); Blood,Urine 3+ (Negative); Glucose, Urine Negative (Negative); Ketones,Urine Negative (Negative); Leukocyte Esterase,Urine Positive (Negative); Nitrite,Urine Negative (Negative); Protein,Urine 3+ (Neg - Trace); RBC,Urine 391 /hpf (0-3); Specific Gravity,Urine 1.016 (1.001-1.035); Squamous Epithelial Cell,Urine 4 /hpf (0-5); Urobilinogen,Urine Negative mg/dL (0.0-1.0); WBC,Urine 727 /hpf (0-5)
[2024-04-19 20:48] LABS: Clarity,Urine Turbid (Clear/Hazy); Color,Urine Yellow (Lt Yel-Yel)
--- NOTE | 2024-04-19 22:01 | PC.NURSE ---
shortly after arrival to [facility], dirty dressing over nephrostomy to R flank removed. Suture no longer connected to skin.slight redness noted at the insertion site however does not appear infected. Tissue around site intact, no swelling or raised tissue. Pt denies pain to area. Useing sterile procedure, tube connecting to drainage bag disconnected useing 5cc sterile seringe, applied light suction and was able to aserate what appeared to be a smal clot of sediment followed by light yellow urine. specimen sent to lab for UA. Replaced old drainage bag with new drainage bag. Area around incersion site cleaned with soap and water. reaplied suture. dressing applied with securment device. Urine flowing freely now. urine is clear light yellow. approved and pt was discharged after CT resulted.
[2024-04-19 22:20] VITALS: BP 133/79; PULSE 82; RESP 18; TEMP 36.8; O2SAT 99
--- NOTE | 2024-04-25 18:16 | PD.EDADULT ---
ED General RME/HPI General Chief complaint: General Adult/Misc Complain Stated complaint: R NEPHROSTOMY NOT DRAINING X3 DAYS Time Seen by Provider: 04/19/24 18:12 Arrival date/time: 04/19/24 17:53 RME / HPI RME / HPI narrative: 04/19/24 17:53 33 year old male present to ED for c/o of nephro stent is blocked for 3 days. 33-year-old male with a history of frequent kidney stones and right sided nephrostomy that has been decreasing and now not draining for the last 3 days. He started to develop some right flank tenderness this afternoon therefore comes to the emergency department. He denies fevers chills or sweats. He denies dysuria or polyuria. He does occasionally still have hematuria. Related Data Home Medications ?Medication ?Instructions ?Recorded ?Confirmed cephalexin 500 mg capsule 500 mg PO TID 03/04/24 04/15/24 hydrochlorothiazide 25 mg tablet 25 mg PO QDAY 03/04/24 04/15/24 lisinopril 10 mg tablet 10 mg PO QDAY 03/04/24 04/15/24 ondansetron 4 mg disintegrating 4 mg PO TID PRN Nausea And Vomiting 03/04/24 04/15/24 tablet Previous Rx's ?Medication ?Instructions ?Recorded cefdinir 300 mg capsule 300 mg PO BID #14 caps 03/14/24 cefdinir 300 mg capsule 300 mg PO BID #6 caps 04/19/24 Allergies Allergy/AdvReac Type Severity Reaction Status Date / Time clindamycin Allergy Difficulty Verified 04/19/24 17:57 Swallowing Review of Systems Review of Systems Systems Reviewed: All systems reviewed, normal except as documented ED Exam Narrative Physical exam: GENERAL APPEARANCE: AxOx4, generally well-appearing, no acute distress. HEENT: NC, AT. MMM. EOMI, clear conjunctiva, oropharynx clear. NECK: Supple without lymphadenopathy. No stiffness or restricted ROM. HEART: Normal rate and regular rhythm, normal S1/S1, no m/r/g LUNGS: CTAB, moving air well. No crackles or wheezes are heard. ABDOMEN: Soft, nontender, nondistended with good bowel sounds heard. BACK: No midline C/T/L spine pain or deformity, No CVAT, right nephrostomy tube, with some initial restriction on questioning, but is now flowing clear yellow urine, anchoring suture has dislodged. No obvious deformity. EXTREMITIES: Without cyanosis, clubbing or edema. MUSCULOSKELETAL: FROM of all major joints, no chest tenderness NEUROLOGICAL: Grossly nonfocal. Alert and oriented, moving all 4 extremities. CN not formally tested but appear grossly intact. Observed to ambulate with normal gait. Skin: Warm and dry without any rash. Course Quality Measures none Orders Category Date Time Status CT abdomen pelvis wo con Stat Exams 04/19/24 19:59 Completed UA [Urinalysis] Stat Lab 04/19/24 19:07 Completed UA [Urinalysis] Stat Lab 04/19/24 20:18 Completed Urine Culture Stat Lab 04/19/24 19:07 Completed Vital Signs Vital signs: Vital Signs Temperature 98.4 F 04/19/24 18:34 Pulse Rate 94 04/19/24 18:34 Respiratory Rate 19 04/19/24 18:34 Blood Pressure 136/83 H 04/19/24 18:34 Pulse Oximetry (%) 95 04/19/24 18:34 Oxygen Delivery Method Room Air 04/19/24 18:34 SpO2 95% on room air, patient is not hypoxic MDM Patient data External records reviewed:: [facility] previous records Clinical information provided by:: patient Social determinants that could affect healthcare access:: none Patient has the following chronic illnesses:: Recurrent ureterolithiasis How is presenting disease/condition affected by chronic disease/condition?: caused by Evaluation data The following diagnostics were reviewed and interpreted by me:: lab results and radiology exam(s) Lab and/or radiology exams considered but not ordered:: None Interpretation Summary: Urinalysis shows no signs of infection, CT scan of the abdomen reviewed showing nephrostomy tube in appropriate position without hydronephrosis, I reviewed the radiology interpretation and agree Medications Medications considered but not ordered:: None Medication administrations:: None Consultations Consultation(s) initiated? (list below): No Diagnosis Differential Diagnosis ED Complaint MDM: Nephrostomy tube dislodged, nephrostomy tube blockage, UTI Most likely diagnosis given after review of the tests above:: See below Admission Indicated Admission indicated?: not indicated Explain why admission is indicated or not indicated:: Focused issues with the nephrostomy has been remedied and is in appropriate position. He is asymptomatic now with stable vital signs. Admission Request Was there a request for admission?: No Disposition Plan Disposition Plan: Discharge Discharge Attestation Discharge Attestation: The patient and all family members were given an opportunity to ask questions and understood the discharge instructions. Discharge instructions specifically effects, indications for sooner follow up or return to the emergency department, and the expected course of current diagnosis. Patient condition: Stable Medical Decision Making Differential Diagnosis Differential Diagnosis: Nephrostomy tube dislodged, nephrostomy tube blockage, UTI Lab Data Labs: Lab Results 04/19/24 04/19/24 Range/Units 19:07 20:18 Ur Collection Type Clean Catch Catheter Urine Color Lt-Yellow Yellow (Lt Yel-Yel) Urine Clarity Clear Turbid A (Clear/Hazy) Urine pH 6.5 8.0 H (5.0-7.0) Ur Specific [place] 1.020 1.016 (1.001-1.035) Urine Protein 1+ A 3+ A (Neg - Trace) Urine Glucose (UA) Negative Negative (Negative) Urine Ketones Negative Negative (Negative) Urine Blood 1+ A 3+ A (Negative) Urine Nitrite Negative Negative (Negative) Urine Bilirubin Negative Negative (Negative) Urine Urobilinogen (Auto) Negative Negative (0.0-1.0) mg/dL Ur Leukocyte Esterase Positive Positive (Negative) Urine RBC 75 H 391 H (0-3) /hpf Urine WBC 63 H 727 H (0-5) /hpf Ur Squamous Epith Cells 1 4 (0-5) /hpf Urine Bacteria Rare 3+ A (None) Discharge Plan Plan Patient Disposition: HOME (Self Care) Prescriptions/Referrals Prescriptions/Med Rec: New cefdinir 300 mg capsule 300 mg PO BID Qty: 6 0RF No Action cefdinir 300 mg capsule 300 mg PO BID Qty: 14 0RF lisinopril 10 mg tablet 10 mg PO QDAY Patient Comments: TAKE 1 TABLET BY MOUTH EVERY DAY hydrochlorothiazide 25 mg tablet 25 mg PO QDAY Patient Comments: TAKE 1 TABLET BY MOUTH EVERY DAY IN THE MORNING ondansetron 4 mg tablet,disintegrating 4 mg PO TID PRN (Reason: Nausea And Vomiting) Patient Comments: 4 MG ORALLY EVERY 8 HOURS NEEDED FOR NAUSEA AND VOMITING Rx Instructions: Q8 H PRN cephalexin 500 mg capsule 500 mg PO TID Referrals: Rosaline Arenas PA-C [Primary Care Provider] - In 1 week Problem List Clinical Impression: Malfunction of nephrostomy tube Patient/Caregiver Discharge Instructions Education Materials: Percutaneous Nephrostomy Dc Additional Instructions: Follow-up with your urologist, Dr. Caceres, with a phone call on Sunday. You can return to the emergency department sooner symptoms worsen or if you notice any new or concerning issues. Print Language: [place] Island[place] Stand Alone Forms: Leann Award Info., Patient Portal Info Letter
== END 2024-04-19 21:55 | disposition home or self-care (01) ==
PROVIDERS: Physician Assistant; Emergency Provider Emergency Medicine; PCP Physician Assistant
DX: Z43.6 Encounter for attention to other artificial openings of urinary tract (principal); Z87.442 Personal history of urinary calculi; R10.9 Unspecified abdominal pain
CPT/HCPCS: 74176; 81001; 87086; 99284

== ENCOUNTER 2024-04-27 15:48 | Emergency (ER) | payer MEDICAID, SELFPAY ==
[2024-04-27 15:49] VITALS: BMI 37.3
[2024-04-27 16:03] VITALS: BP 155/99; PULSE 64; RESP 18; TEMP 36.6; O2SAT 97
--- NOTE | 2024-04-27 16:27 | PD.EDRME ---
Rapid Medical Screening Exam E Arrival date/time: 04/27/24 15:48 This is a 33-year-old male that comes in with complaints of kidney stones in the past. Patient has a right nephrostomy as a result. Patient was recently seen on 04/19/2024 because his nephrostomy was not draining. Patient states that he is having this issue again and it has been 2 to 3 days. Patient complaining of right flank pain and says he feels hot but does not know if he has had a fever. Denies chills. I have greeted and performed a focused initial assessment of this patient. Initial appropriate labs ordered at this time. A comprehensive ED assessment and evaluation of the patient and analysis of all test and completion of medical decision making process will be conducted by additional ED provider. Chief Complaint: Urogenital-Male Time Seen by Provider: 04/27/24 16:01 Vital signs: Vital Signs Temperature 97.9 F 04/27/24 16:03 Pulse Rate 64 04/27/24 16:03 Respiratory Rate 18 04/27/24 16:03 Blood Pressure 155/99 H 04/27/24 16:03 Pulse Oximetry (%) 97 04/27/24 16:03 Oxygen Delivery Method Room Air 04/27/24 16:03
--- NOTE | 2024-04-27 16:31 | XR_ITS ---
Examination: CT abdomen and pelvis without contrast. Coronal 3-D reconstructions. Sagittal 2-D reconstructions. Date and time of exam:April 27, 2024 1651 hours Comparison April 19, 2024 INDICATIONS: Patient's right nephrostomy tube is not draining one month CTDI: vol (mGy): 15.7 DLP: (mGycm): 1032 Technique: Axial images of the abdomen have been obtained, 3 mm slice thickness Intravenous contrast material has not been administered. Low dose protocols were performed. One or more of the following dose reduction techniques were used; automated exposure control, adjustment of the mA and/or KV according to patient size, use of iterative reconstruction technique. Findings: No focal liver or splenic lesions No pancreatic or adrenal mass Right percutaneous nephrostomy tube satisfactory position with mild to moderate right hydronephrosis Again noted 12 mm proximal right ureteral calculus Normal appendix Urinary bladder intact Moderate osteopenia IMPRESSION: Right percutaneous nephrostomy tube satisfactory position Interval [id number] right hydronephrosis
[2024-04-27 16:57] LABS: Lactate (Lactic Acid) 0.9 mMol/L (0.4-2.0)
[2024-04-27 17:01] LABS: Basophils # (Auto) 0.1 Thou/mm3 (0.0-0.2); Basophils % (Auto) 1 % (0-2.5); Eosinophils # (Auto) 0.2 Thou/mm3 (0.0-0.5); Eosinophils % (Auto) 2 % (0-10); Hematocrit 45.3 % (41.0-53.0); Hemoglobin 15.9 g/dL (13.5-16.0); Immature Granulocytes % (Auto) 1 % (0-0); Immature Granulocytes Auto 0.08 Thou/mm3 (0.00-0.00); Lymphocytes # (Auto) 1.5 Thou/mm3 (1.0-4.8); Lymphocytes % (Auto) 10 % (10-50); Mean Corpuscular HGB Conc 35.1 g/dl (31.0-37.0); Mean Corpuscular Hemoglobin 28.4 pg (25.0-35.0); Mean Corpuscular Volume 81 fL (80-100); Monocytes # (Auto) 0.5 Thou/mm3 (0.0-0.8); Monocytes % (Auto) 3 % (0-12); Neutrophils # (Auto) 12.5 Thou/mm3 (1.8-7.7); Neutrophils % (Auto) 84 % (37-80); Nucleated Red Blood Cell % 0 /100 WBC (0); Platelet Count 247 Thou/mm3 (140-440); RDW Standard Deviation 37.6 fL (35.1-43.9); White Blood Count 14.8 Thou/mm3 (3.8-10.6)
[2024-04-27 17:20] LABS: Alanine Aminotransferase 45 U/L (10-49); Albumin, Serum 4.8 gm/dL (3.5-5.0); Albumin/Globulin Ratio 1.6 (1.2-2.2); Alkaline Phosphatase 137 U/L (46-116); Anion Gap 8 (7-16); Aspartate Amino Transferase 20 U/L (0-34); BUN/Creatinine Ratio 15 Ratio (12-20); Bilirubin,Total 0.5 mg/dL (0.3-1.2); Blood Urea Nitrogen 18 mg/dL (9-23); Calcium 9.7 mg/dL (8.3-10.6); Calcium (Corrected) 9.7 mg/dL (8.5-10.1); Carbon Dioxide 27.3 mMol/L (20.0-31.0); Chloride 103 mMol/L (98-107); Creatinine (Component) 1.2 mg/dL (0.6-1.3); Estimated Creatinine Clearance 118.3 mL/min (>60); Glucose 122 mg/dL (74-106); Osmolality,Calculated 278 (275-295); Potassium 3.7 mMol/L (3.4-5.1); Sodium 138 mMol/L (136-145); Total Protein 7.8 gm/dL (5.7-8.2); eGFR > 60 See Note
[2024-04-27 18:01] LABS: Collection Type, Urine Clean Catch
[2024-04-27 18:07] LABS: Bilirubin,Urine Negative (Negative); Blood,Urine 2+ (Negative); Clarity,Urine Turbid (Clear/Hazy); Color,Urine Yellow (Lt Yel-Yel); Culture Indicated,Urine Yes; Glucose, Urine Negative (Negative); Ketones,Urine Negative (Negative); Leukocyte Esterase,Urine Positive (Negative); Nitrite,Urine Negative (Negative); Protein,Urine 1+ (Neg - Trace); RBC,Urine 113 /hpf (0-3); Specific Gravity,Urine 1.025 (1.001-1.035); Squamous Epithelial Cell,Urine < 1 /hpf (0-5); Urobilinogen,Urine Negative mg/dL (0.0-1.0); WBC,Urine 91 /hpf (0-5)
--- NOTE | 2024-04-27 19:11 | EDNOTE_ITS ---
<Statement entered by Yanira Villa MD - 05/13/24 07:19> As co-signing physician, I was present and available for consult prn. I concur with the plan and care as documented by the midlevel provider. ED Male Genitalurinary RME/HPI General Chief complaint: Urogenital-Male Stated complaint: Nephrostomy tube obstructed Time Seen by Provider: 04/27/24 16:01 Arrival date/time: 04/27/24 15:48 This is a 33-year-old male that comes in with complaints of kidney stones in the past. Patient has a right nephrostomy as a result. Patient was recently seen on 04/19/2024 because his nephrostomy was not draining. Patient states that he is having this issue again and it has been 2 to 3 days. Patient complaining of right flank pain and says he feels hot but does not know if he has had a fever. Denies chills. RME / HPI RME / HPI Narrative: 04/27/24 15:48 This is a 33-year-old male that comes in with complaints of kidney stones in the past. Patient has a right nephrostomy as a result. Patient was recently seen on 04/19/2024 because his nephrostomy was not draining. Patient states that he is having this issue again and it has been 2 to 3 days. Patient complaining of right flank pain and says he feels hot but does not know if he has had a fever. Denies chills. I have greeted and performed a focused initial assessment of this patient. Initial appropriate labs ordered at this time. A comprehensive ED assessment and evaluation of the patient and analysis of all test and completion of medical decision making process will be conducted by additional ED provider. Related Data Home Medications ?Medication ?Instructions ?Recorded ?Confirmed cephalexin 500 mg capsule 500 mg PO TID 03/04/2404/15 hydrochlorothiazide 25 mg tablet 25 mg PO QDAY 4 04/15/24 lisinopril 10 mg tablet 10 mg PO QDAY 03/04/2404/15 ondansetron 4 mg disintegrating 4 mg PO TID PRN Nausea And Vomiting 03/04/24 04/15/24 tablet Previous Rx's ?Medication ?Instructions ?Recorded cefdinir 300 mg capsule 300 mg PO BID #14 caps 03/14 cefdinir 300 mg capsule 300 mg PO BID #6 caps cefdinir 300 mg capsule 300 mg PO BID #14 caps 04/30 Allergies Allergy/AdvReac Type Severity Reaction Status Date / Time clindamycin Allergy Difficulty Verified 04/19/24 17:57 Swallowing Review of Systems Review of Systems Systems Reviewed: All systems reviewed, normal except as documented Past Medical History Past Medical History NEUROLOGIC: Negative Neurological Disorders or Seizures CARDIAC: Positive Cardiac Disorders and Hypertension; Negative Congestive Heart Failure RESPIRATORY: Negative Chronic Obstructive Pulmonary Disease (COPD), Asthma, Pneumonia, Tuberculosis or Sleep Apnea GASTROINTESTINAL: Positive Obesity; Negative Gastrointestinal Disorders or Hepatitis GENITOURINARY: Positive Genitourinary Disorders and Kidney Stones; Negative Renal Disease MUSCULOSKELETAL: Positive Musculoskeletal Disorders and Fractures (RIBS IN THE PAST) ENDOCRINE: Negative Endocrine Disorders, Diabetes Mellitus Type 1 or Diabetes Mellitus Type 2 HEMATOLOGIC: Negative Blood Disorders or Sickle Cell Disease OTHER HISTORY: Negative Hospitalization, Autoimmune Disease, Shingles, Falls, Blood Transfusions, Blood Transfusion Reaction, Anesthesia Reactions, Chemotherapy, Radiation Therapy, MRSA, Chicken Pox, Measles, Mumps or Cancer Family History FAMILY HISTORY: Positive Family Cancer and Family Surgery; Negative Family Psychiatric Problems, Family Respiratory Disorders, Family Cardiac Disorders, Family Gastrointestinal Problems or Family Anesthesia Reaction Social History SMOKING STATUS: Current some day smoker SECOND HAND EXPOSURE: No ED Exam General General appearance: Present alert and in no apparent distress Head Head exam: Present atraumatic Eye Eye exam: Present normal appearance, PERRL and EOMI ENT ENT exam: Present normal exam, normal oropharynx and mucous membranes moist Neck Neck exam: Present normal inspection, full ROM and trachea midline Chest Chest inspection: Present normal inspection and symmetric chest wall rise Respiratory Respiratory exam: Present normal lung sounds bilaterally Cardiovascular Cardiovascular exam: Present regular rate, normal rhythm and normal heart sounds Abdominal Exam Abdominal exam: Present soft Extremities Exam Extremities exam: Present normal inspection and full ROM Back Exam Back exam: Present full ROM and other (nephostomy tube on right lower back, plugged but unclogged after saline used to flush it ) Neurological Exam Neurological exam: Present alert, oriented X3 and CN II-XII intact Psychiatric Psychiatric exam: Present normal affect and normal mood Skin Skin exam: Present warm, dry, intact and normal color Course Quality Measures none Orders Category Date Time Status CT abdomen pelvis wo con Stat Exams 04/27/24 16:31 Completed Blood Culture (Lab) Stat Lab 04/27/24 16:44 Completed CBC Stat Lab 04/27/24 16:44 Completed Comprehensive Metabolic Panel Stat Lab 04/27/24 16:44 Completed Lactate (Lactic Acid) Stat Lab 04/27/24 16:44 Completed Urinalysis, C/S if Indicated Stat Lab 04/27/24 17:10 Completed Urine Culture Stat Lab 04/27/24 17:10 Completed cefTRIAXone [Rocephin] 1,000 mg Med 04/27/24 19:10 Discontinued Lidocaine 1% 20 ml [Xylocaine 1% 20 ML] 2.1 ml IM X1 Vital Signs Vital signs: Vital Signs Temperature 97.9 F 04/27/24 16:03 Pulse Rate 64 04/27/24 16:03 Respiratory Rate 18 04/27/24 16:03 Blood Pressure 155/99 H 04/27/24 16:03 Pulse Oximetry (%) 97 04/27/24 16:03 Oxygen Delivery Method Room Air 04/27/24 16:03 Urogenital - Male MDM Narrative MDM Narrative:: CT abdomen and pelvis: Findings: No focal liver or splenic lesions No pancreatic or adrenal mass Right percutaneous nephrostomy tube satisfactory position with mild to moderate right hydronephrosis Again noted 12 mm proximal right ureteral calculus Normal appendix Urinary bladder intact Moderate osteopenia IMPRESSION: Right percutaneous nephrostomy tube satisfactory position Interval [id number] right hydronephrosis Pt nephrostomy tube on right plugged and not draining. Pt nephrostomy tube flushed and now draining with no issues. UA sent and shows infection. Pt given rocephin. Pt reports he is still on antibiotics. Will give a dose of rocephin. WBC shows 14.8 and alk phos slightly elevated but potherwise unremarkable. Will send a UA. Pt told to come back to ED if symptoms change or worsen. Patient data External records reviewed:: [facility] previous records Clinical information provided by:: patient Social determinants that could affect healthcare access:: none Patient has the following chronic illnesses:: none How is presenting disease/condition affected by chronic disease/condition?: no chronic disease Evaluation data The following diagnostics were reviewed and interpreted by me:: lab results and radiology exam(s) Lab and/or radiology exams considered but not ordered:: none Interpretation Summary: see note Medications / Prescriptions Medications or Prescriptions considered but not ordered:: none Medication administrations:: Medication Administration History Discontinued Medications Ceftriaxone Sodium 1,000 mg/ (Lidocaine HCl 2.1 ml) 0 mg IM X1 ONE Stop: 04/27/24 19:11 Last Admin: 04/27/24 20:22 Dose: 1,000 mg Documented By: see mar Consultations Consultation(s) initiated? (list below): No Diagnosis Urogenital Male Differential Diagnosis: urinary tract infection, acute retention of urine and other (pyelonephritis, sepsis ) Most likely diagnosis given after review of the tests above:: uti Admission Indicated Admission indicated?: not indicated Explain why admission is indicated or not indicated:: not needed Admission Request Was there a request for admission?: No Disposition Plan Disposition Plan: Discharge Discharge Attestation Discharge Attestation: The patient and all family members were given an opportunity to ask questions and understood the discharge instructions. Discharge instructions specifically effects, indications for sooner follow up or return to the emergency department, and the expected course of current diagnosis. Patient condition: Stable Discharge Plan Plan Patient Disposition: HOME (Self Care) Patient condition on transfer: Stable Prescriptions/Referrals Prescriptions/Med Rec: No Action cefdinir 300 mg capsule 300 mg PO BID Qty: 14 0RF cefdinir 300 mg capsule 300 mg PO BID Qty: 6 0RF lisinopril 10 mg tablet 10 mg PO QDAY Patient Comments: TAKE 1 TABLET BY MOUTH EVERY DAY hydrochlorothiazide 25 mg tablet 25 mg PO QDAY Patient Comments: TAKE 1 TABLET BY MOUTH EVERY DAY IN THE MORNING ondansetron 4 mg tablet,disintegrating 4 mg PO TID PRN (Reason: Nausea And Vomiting) Patient Comments: 4 MG ORALLY EVERY 8 HOURS NEEDED FOR NAUSEA AND VOMITING Rx Instructions: Q8 H PRN cephalexin 500 mg capsule 500 mg PO TID cefdinir 300 mg capsule 300 mg PO BID Qty: 14 0RF Referrals: Rosaline Arenas PA-C [Primary Care Provider] - In 1 week Problem List Clinical Impression: Acute UTI, Hydronephrosis Patient/Caregiver Discharge Instructions Discharge Activity: activity as tolerated Education Materials: Urinary Tract Infections in Men Additional Instructions: Follow-up with primary provider in 1 to 2 days. Keep scheduled appointment with urologist. Come back to the emergency room if symptoms change or worsen. Continue antibiotics at home. Print Language: [place] Stand Alone Forms: Leann Award Info., Patient Portal Info Letter IESHA/DATA SECURITY ADMINISTRATOR Supervising Physician PA/DATA SECURITY ADMINISTRATOR Supervising Physician: romeo
[2024-04-27] MEDS: cefTRIAXone 1,000 MG, LIDOCAINE 1% 20 ML 2.1 ML IM (20:22)
== END 2024-04-27 20:34 | disposition home or self-care (01) ==
PROVIDERS: Nurse Practitioner Family; Emergency Provider Emergency Medicine; PCP Physician Assistant
DX: N13.6 Pyonephrosis (principal); T83.092A Other mechanical complication of nephrostomy catheter, initial encounter; Y84.6 Urinary catheterization as the cause of abnormal reaction of the patient, or of later complication, without mention of misadventure at the time of the procedure
CPT/HCPCS: 36415; 74176; 80053; 81001; 83605; 85025; 87040; 87077; 87086; 87186; 96372; 99284; J0696; J3490

== ENCOUNTER 2024-04-29 22:02 | Emergency (ER) | payer MEDICAID, SELFPAY ==
[2024-04-29 22:03] VITALS: BMI 37.3
[2024-04-29 22:33] VITALS: BP 172/109; PULSE 67; RESP 18; TEMP 36.6; O2SAT 98
--- NOTE | 2024-04-29 22:37 | XR_ITS ---
Examination: CT abdomen and pelvis without contrast. Coronal 3-D reconstructions. Sagittal 2-D reconstructions. Date and time of exam:April 29, 2024 10:52 PM Comparison April 27, 2024 INDICATIONS: Nephrostomy tube not draining today CTDI: vol (mGy): 13.51 DLP: (mGycm): 1047 Technique: Axial images of the abdomen have been obtained, 3 mm slice thickness Intravenous contrast material has not been administered. Low dose protocols were performed. One or more of the following dose reduction techniques were used; automated exposure control, adjustment of the mA and/or KV according to patient size, use of iterative reconstruction technique. Findings: No focal liver or splenic lesion Small gallstone No pancreatic or adrenal mass Right percutaneous nephrostomy tube has been pulled out of the kidney Moderate right hydronephrosis Aorta normal size No bowel obstruction No change in position of the liver proximal right ureteral calculus Contracted urinary bladder IMPRESSION: The patient's right percutaneous nephrostomy tube has been pulled out of the kidney
--- NOTE | 2024-04-29 22:45 | EDRME_ITS ---
Rapid Medical Screening Exam RME Arrival date/time: 04/29/24 22:02 Chief Complaint: Urogenital-Male Vital signs: Vital Signs Temperature 98 F 04/29/24 22:33 Pulse Rate 67 04/29/24 22:33 Respiratory Rate 18 04/29/24 22:33 Blood Pressure 172/109 H 04/29/24 22:33 Pulse Oximetry (%) 98 04/29/24 22:33 Oxygen Delivery Method Room Air 04/29/24 22:33 RME Narrative: 33-year-old male presents with complaint of his right nephrostomy tube not draining. Also has flank pain and abdominal pain. I have greeted and performed a focused initial assessment of this patient. A c omprehensive ED assessment and evaluation of the patient, analysis of all test results, and completion of the medical decision making process will be conducted by additional ED providers.
[2024-04-29 23:10] LABS: Basophils # (Auto) 0.1 Thou/mm3 (0.0-0.2); Basophils % (Auto) 0 % (0-2.5); Eosinophils # (Auto) 0.3 Thou/mm3 (0.0-0.5); Eosinophils % (Auto) 3 % (0-10); Hemoglobin 15.5 g/dL (13.5-16.0); Immature Granulocytes % (Auto) 0 % (0-0); Immature Granulocytes Auto 0.05 Thou/mm3 (0.00-0.00); Lymphocytes # (Auto) 1.8 Thou/mm3 (1.0-4.8); Lymphocytes % (Auto) 14 % (10-50); Mean Corpuscular HGB Conc 35.2 g/dl (31.0-37.0); Mean Corpuscular Hemoglobin 28.1 pg (25.0-35.0); Mean Corpuscular Volume 80 fL (80-100); Monocytes # (Auto) 0.9 Thou/mm3 (0.0-0.8); Monocytes % (Auto) 7 % (0-12); Neutrophils # (Auto) 9.6 Thou/mm3 (1.8-7.7); Neutrophils % (Auto) 76 % (37-80); Nucleated Red Blood Cell % 0 /100 WBC (0); Platelet Count 254 Thou/mm3 (140-440); RDW Standard Deviation 36.8 fL (35.1-43.9); Red Blood Count 5.51 Miln/mm3 (4.50-5.90); White Blood Count 12.7 Thou/mm3 (3.8-10.6)
[2024-04-29] MEDS: KETOROLAC INJ 30 MG/ML VIAL IM (23:31)
[2024-04-29 23:37] LABS: Alanine Aminotransferase 35 U/L (10-49); Albumin, Serum 4.5 gm/dL (3.5-5.0); Albumin/Globulin Ratio 1.6 (1.2-2.2); Alkaline Phosphatase 129 U/L (46-116); Anion Gap 8 (7-16); Aspartate Amino Transferase 21 U/L (0-34); BUN/Creatinine Ratio 14 Ratio (12-20); Bilirubin,Total 0.6 mg/dL (0.3-1.2); Blood Urea Nitrogen 17 mg/dL (9-23); Calcium 9.7 mg/dL (8.3-10.6); Calcium (Corrected) 9.7 mg/dL (8.5-10.1); Carbon Dioxide 26.5 mMol/L (20.0-31.0); Chloride 106 mMol/L (98-107); Creatinine (Component) 1.2 mg/dL (0.6-1.3); Estimated Creatinine Clearance 118.3 mL/min (>60); Globulin 2.9 gm/dL (2.3-3.5); Glucose 129 mg/dL (74-106); Lipase 27 U/L (12-53); Osmolality,Calculated 282 (275-295); Potassium 3.7 mMol/L (3.4-5.1); Sodium 140 mMol/L (136-145); Total Protein 7.4 gm/dL (5.7-8.2); eGFR > 60 See Note
[2024-04-29 23:57] VITALS: BP 155/81; PULSE 60; RESP 18; TEMP 36.4; O2SAT 95
[2024-04-30] VITALS (13 sets, daily range): BP systolic 120–161; BP diastolic 67–105; PULSE 61–776; RESP 16–18; TEMP 36.7–36.8; O2SAT 94–100
--- NOTE | 2024-04-30 | XR_ITS ---
Examination: Right percutaneous nephrostomy tube placement Right nephrostogram Fluoroscopy AP abdomen 2 views Exam date and time: April 30, 2024 0934 hours INDICATIONS: Right hydronephrosis secondary to right ureteral calculus, patient's existing right nephrostomy tube pulled out yesterday, needs replacement TECHNIQUE AND FINDINGS: Informed consent provided. Timeout performed. Skin prepped over the right flank and sterile drape applied hand hygiene ultrasound sterile technique Maximum barrier sterile technique 1% lidocaine administered for local anesthesia Site right portable apparatus utilized to confirm dilated left renal collecting system Utilizing ultrasonographic guidance successful 21-gauge needle puncture into the left renal collecting system with 0.18 wire guide is introduced into the needle into the left renal collecting system 5 Barbadian catheter placed over the wire guide followed by 0.35 wire guide Dilators placed over the wire guide followed by the 12 Barbadian 25 cm nephrostomy drainage catheter in satisfactory position Contrast in the collecting system shows satisfactory position of the nephrostomy drainage catheter at completion of the procedure Fluoroscopy 1.4 minute radiation dose 81.01 milligray 2 spot fluoroscopic abdomen films Estimated blood loss 2 cc IMPRESSION: Successful fluoroscopically guided percutaneous placement right nephrostomy drainage tube
--- NOTE | 2024-04-30 00:01 | PD.EDMALE ---
ED Male Genitalurinary RME/HPI General Chief complaint: Urogenital-Male Stated complaint: NEPHROSTOMY TUBE NOT DRAINING, PAIN RIGHT SIDE Time Seen by Provider: 04/29/24 23:27 Arrival date/time: 04/29/24 22:02 RME / HPI RME / HPI Narrative: 33-year-old male presents with complaint of his right nephrostomy tube not draining. Also has flank pain and abdominal pain. I have greeted and performed a focused initial assessment of this patient. A comprehensive ED assessment and evaluation of the patient, analysis of all test results, and completion of the medical decision making process will be conducted by additional ED providers. -------- Dr. Loya?s Main ED Evaluation: 33yo male presents to the ED for a chief complaint of his right nephrostomy tube not draining. Patient states he noticed his nephrostomy tube was not draining this afternoon, so he came in for evaluation. He denies getting the tube caught on something. Patient denies any abdominal pain, back pain, fever, chills or any other associated symptoms. Related Data Home Medications ?Medication ?Instructions ?Recorded ?Confirmed cephalexin 500 mg capsule 500 mg PO TID 03/04/24 04/15/24 hydrochlorothiazide 25 mg tablet 25 mg PO QDAY 03/04/24 04/15/24 lisinopril 10 mg tablet 10 mg PO QDAY 03/04/24 04/15/24 ondansetron 4 mg disintegrating 4 mg PO TID PRN Nausea And Vomiting 03/04/24 04/15/24 tablet Previous Rx's ?Medication ?Instructions ?Recorded cefdinir 300 mg capsule 300 mg PO BID #14 caps 03/14/24 cefdinir 300 mg capsule 300 mg PO BID #6 caps 04/19/24 Allergies Allergy/AdvReac Type Severity Reaction Status Date / Time clindamycin Allergy Difficulty Verified 04/19/24 17:57 Swallowing Review of Systems Review of Systems Systems Reviewed: All systems reviewed, normal except as documented Narrative Review of Systems: Gen: No fever, no chills, no weight loss EYES: No discharge, no visual changes, no pain HEENT: No ear pain, no congestion, no sore throat PULM: No shortness of breath, no cough, no congestion CV: No chest pain, no dyspnea on exertion, no palpitations GI: No nausea, no vomiting, no diarrhea, no pain, no constipation : No frequency, no urgency, no dysuria, + nephrostomy tube not draining Musc/skel: No joint pain, no back pain Skin: No rash. Warm and dry. Psyc: No hallucinations, no depression Heme/Lymph: No easy bleeding or bruising tendencies Neuro: No weakness, no headache ED Exam Narrative Physical exam: GENERAL APPEARANCE: alert and oriented x 4, well-developed, well-nourished, no acute distress VITALS: All vitals were reviewed and the pulse ox is 95% on room air, which is normal according to my interpretation. HEENT: Normocephalic, atraumatic; pupils equal, round, reactive to light; EOMI; mucous membranes pink, moist; oropharynx clear NECK: Supple LUNGS: CTABL; no wheezes, no rales, no rhonchi HEART: Regular rate, regular rhythm; normal S1, S2; no murmurs ABDOMEN: non distended; normal BS; soft, no tenderness, no guarding, no rebound; no masses, no organomegaly, no hernia BACK: no CVA tenderness; right nephrostomy tube in place without any active bleeding EXTREMITIES: atraumatic; no edema NEUROLOGIC: awake; alert and oriented x4; cranial nerves II-XII grossly intact; no focal sensory or motor deficits PSYCHIATRIC: appropriate mood and affect SKIN: warm, dry, normal color; no rashes Course Course Course Narrative: The patient was placed in ED observation care at 04/30/24 at 0016 hours. The patient was placed in ED observation care because of pending IR in the morning. The patients past medical history, social history, and family history were reviewed. 0600: Care signed out to Dr. Fagan (emergency physician). Past medical, surgical, social and family history reviewed. Vitals and home medications reviewed. Results and treatment plan discussed. They will assume the care of the patient at this time and will follow the patient, pending IR in the morning. At this time, observation has ended. Quality Measures none Orders Category Date Time Status Miscellaneous Nursing Order NOW Care 04/29/24 23:34 Active Miscellaneous Nursing Order NOW Care 04/30/24 00:[address] abdomen pelvis wo con Stat Exams 04/29/24 22:37 Completed CBC Stat Lab 04/29/24 22:40 Completed CMP [Comprehensive Metabolic Panel] Stat Lab 04/29/24 22:40 Completed Lipase Stat Lab 04/29/24 22:40 Completed Urinalysis Stat Lab 04/29/24 23:54 Completed Ketorolac Inj [Toradol Inj] Med 04/29/24 22:37 Discontinued 30 mg IM X1 ONE Vital Signs Vital signs: Vital Signs Temperature 98 F 04/29/24 22:33 Pulse Rate 67 04/29/24 22:33 Respiratory Rate 18 04/29/24 22:33 Blood Pressure 172/109 H 04/29/24 22:33 Pulse Oximetry (%) 98 04/29/24 22:33 Oxygen Delivery Method Room Air 04/29/24 22:33 Urogenital - Male MDM Narrative MDM Narrative:: Scribe Attestation: 04/30/24 Alethea Marques am scribing for and in the presence of Dr. Loya. Patient data External records reviewed:: [facility] previous records (Per chart review, patient was seen here on 04/25/24 for malfunction of nephrostomy tube.) Clinical information provided by:: patient Social determinants that could affect healthcare access:: none Patient has the following chronic illnesses:: recurrent ureterolithiasis s/p right nephrostomy How is presenting disease/condition affected by chronic disease/condition?: caused by Evaluation data The following diagnostics were reviewed and interpreted by me:: lab results and radiology exam(s) Lab and/or radiology exams considered but not ordered:: none Interpretation Summary: WBC count is elevated at 12.7, CMP is normal, Lipase is normal, according to my interpretation. ----- [facility] Report Signed Patient: JOSE C LINK [facility]. Record#: [id number] Birthdate: 1990 Age/Sex: 33 / M Location: [facility] Attending Dr: Ordering Physician: Micheal Vargas PA-C Date of Service: 04/29/24 Procedure(s): CT abdomen pelvis wo con Accession Number(s): [id number] cc: Micheal Vargas PA-C; Sid Vilchis MD~ Examination: CT abdomen and pelvis without contrast. Coronal 3-D reconstructions. Sagittal 2-D reconstructions. Date and time of exam:April 29, 2024 10:52 PM Comparison April 27, 2024 INDICATIONS: Nephrostomy tube not draining today CTDI: vol (mGy): 13.51 DLP: (mGycm): 1047 Technique: Axial images of the abdomen have been obtained, 3 mm slice thickness Intravenous contrast material has not been administered. Low dose protocols were performed. One or more of the following dose reduction techniques were used; automated exposure control, adjustment of the mA and/or KV according to patient size, use of iterative reconstruction technique. Findings: No focal liver or splenic lesion Small gallstone No pancreatic or adrenal mass Right percutaneous nephrostomy tube has been pulled out of the kidney Moderate right hydronephrosis Aorta normal size No bowel obstruction No change in position of the liver proximal right ureteral calculus Contracted urinary bladder IMPRESSION: The patient's right percutaneous nephrostomy tube has been pulled out of the kidney Dictated By: Sid Vilchis MD Signed By: <Electronically signed by Sid Vilchis MD in OV> 04/29/24 2318 Medications / Prescriptions Medications or Prescriptions considered but not ordered:: none Medication administrations:: Medication Administration History Discontinued Medications Ketorolac Tromethamine (Ketorolac Inj 30 Mg/Ml Vial) 30 mg IM X1 ONE Stop: 04/29/24 22:38 Last Admin: 04/29/24 23:31 Dose: 30 mg Documented By: EO see above Consultations Consultation(s) initiated? (list below): No Diagnosis Urogenital Male Differential Diagnosis: other (nephrostomy tube malfunction, nephrostomy tube dislodgement, nephrostomy tube blockage) Most likely diagnosis given after review of the tests above:: displacement of nephrostomy tube Admission Indicated Admission indicated?: not indicated Admission Request Was there a request for admission?: No Disposition Plan Disposition Plan: other (specify) (Signed out to Dr. Fagan at 0600 pending IR for nephrostomy tube replacement.) Discharge Plan Prescriptions/Referrals Prescriptions/Med Rec: No Action cefdinir 300 mg capsule 300 mg PO BID Qty: 14 0RF cefdinir 300 mg capsule 300 mg PO BID Qty: 6 0RF lisinopril 10 mg tablet 10 mg PO QDAY Patient Comments: TAKE 1 TABLET BY MOUTH EVERY DAY hydrochlorothiazide 25 mg tablet 25 mg PO QDAY Patient Comments: TAKE 1 TABLET BY MOUTH EVERY DAY IN THE MORNING ondansetron 4 mg tablet,disintegrating 4 mg PO TID PRN (Reason: Nausea And Vomiting) Patient Comments: 4 MG ORALLY EVERY 8 HOURS NEEDED FOR NAUSEA AND VOMITING Rx Instructions: Q8 H PRN cephalexin 500 mg capsule 500 mg PO TID Problem List Clinical Impression: Displacement of nephrostomy tube Patient/Caregiver Discharge Instructions Print Language: Yakut
[2024-04-30 00:08] LABS: Collection Type, Urine Clean Catch
[2024-04-30 00:24] LABS: Bilirubin,Urine Negative (Negative); Blood,Urine 3+ (Negative); Calcium Oxalate Crystals,Urine 2+; Clarity,Urine Turbid (Clear/Hazy); Color,Urine Yellow (Lt Yel-Yel); Glucose, Urine Negative (Negative); Hyaline Casts,Urine < 1 /hpf (0-1); Ketones,Urine Negative (Negative); Leukocyte Esterase,Urine Positive (Negative); Nitrite,Urine Negative (Negative); Protein,Urine 2+ (Neg - Trace); RBC,Urine 186 /hpf (0-3); Specific Gravity,Urine 1.031 (1.001-1.035); Squamous Epithelial Cell,Urine 1 /hpf (0-5); Urobilinogen,Urine Negative mg/dL (0.0-1.0); WBC,Urine 37 /hpf (0-5)
--- NOTE | 2024-04-30 08:06 | PC.NURSE ---
Report received from pm nurse with c/o right groin pain and right nephrostomy tube stopped draining, currently patient denies pain, states pain relieved after receiving pain medication. Skin Warm dry and pink, patient aware of plan of care and awaiting IR to re insert nephrostomy tube do to it being displaced, call light within reach, patient has no other needs at this time.
[2024-04-30] MEDS: cefTRIAXone 1,000 MG in SODIUM CHLORIDE 0.9% (P) 50 ML 100 MG IV (08:09)
--- NOTE | 2024-04-30 09:25 | PC.NURSE ---
Spoke with Justice in IR, will come to ER to take patient for right nephrostomy tube insertion after order has been placed, Dr. bello made aware
--- NOTE | 2024-04-30 09:47 | PC.NURSE ---
Report given to Justice in IR
[2024-04-30] MEDS: SODIUM CHLORIDE 0.9% 250 ML 250 ML 100 ML IV (10:00)
--- NOTE | 2024-04-30 10:05 | XR_ITS ---
Examination: Ultrasound-guided needle placement right renal collecting system Ultrasound kidneys Exam date and time: April 30, 2024 1020 hours INDICATIONS: Patient struck nephrostomy tube pulled out, need for replacement given the significant right hydronephrosis TECHNIQUE AND FINDINGS: The solid utilized to confirm right hydronephrosis Utilizing ultrasonographic guidance successful 21-gauge needle puncture into the right renal collecting system 0.18 wire guide then introduced through the needle into the renal collecting system for subsequent nephrostomy tube placement IMPRESSION: Successful ultrasound-guided needle placement right renal collecting system
[2024-04-30] MEDS: fentaNYL CIT INJ 50 mCg/ML AMP 2ML 100 MCG IVP (10:40)
[2024-04-30] MEDS: LIDOCAINE INJ PF 1% 5 ML VIAL 20 ML INFL (10:42)
--- NOTE | 2024-04-30 11:20 | PC.NURSE ---
Patient back from IR, patient tolerated procedure well, Report received from Justice MONCADA in IR, Radiologist placed 12Fr right nephrostomy tube, patient noted to have sligh pink tinged urine noted in nephrotomy bag, patient denies pain at this time, gautam notify Gracia Coe, patient back from IR. Call light within reach.
--- NOTE | 2024-04-30 15:56 | PD.EDADDENDU ---
Emergency Room Addendum Addendum Narrative: I took over the care from Dr. Loya at 6 AM on 04/30/2024. Our IR replaced his right nephrostomy. Treatment here included Rocephin. He felt much better. Based on my best medical judgment, made decision no further evaluation or treatment indicated at this time. Patient understands and agrees to the discharge instructions customized and printed, see below. Discharge instructions from Dr. Fagan: 1. After evaluation, you have UTI (see attached handout).? And we were able to replace your right nephrostomy tube. 2. Take cefdinir to kill the germs causing the infection.? Increase oral fluid to flush it out.? Maintain clear urine.? If dark or yellow, increase oral fluid. 3. Try to avoid pulling out the tube again accidentally. 4. See a private doctor on 05/02/2024 for recheck.? Ask to review all test results and official radiology reports, to make sure you receive all necessary follow-ups and monitoring, including final urine culture results. 5. Seek immediate medical care with worsening, fever, or with any concerns. Praveen Fagan MD
== END 2024-04-30 12:04 | disposition home or self-care (01) ==
PROVIDERS: Physician Assistant; Emergency Provider Emergency Medicine; PCP Physician Assistant
DX: T83.022A Displacement of nephrostomy catheter, initial encounter (principal); Y84.6 Urinary catheterization as the cause of abnormal reaction of the patient, or of later complication, without mention of misadventure at the time of the procedure
CPT/HCPCS: 50435; 36415; 74176; 75984; 76998; 80053; 81001; 83690; 85025; 87086; 96365; 99284; C1729; J0696; J1885; J3010; J3490; J7050; Q9958

== ENCOUNTER 2024-05-20 11:43 | Emergency (ER) | payer MEDICAID, SELFPAY ==
[2024-05-20 12:09] VITALS: BP 144/91; PULSE 91; RESP 18; TEMP 37.2; O2SAT 96; BMI 33.5
--- NOTE | 2024-05-20 12:17 | PD.EDRME ---
Rapid Medical Screening Exam RME Arrival date/time: 05/20/24 11:43 33-year-old male with nephrostomy in place presents emerged part today with complaints of sediment in his nephrostomy tube and lower abdominal pain Chief Complaint: Urogenital-Male Vital signs: Vital Signs Temperature 98.9 F 05/20/24 12:09 Pulse Rate 91 05/20/24 12:09 Respiratory Rate 18 05/20/24 12:09 Blood Pressure 144/91 H 05/20/24 12:09 Pulse Oximetry (%) 96 05/20/24 12:09 Oxygen Delivery Method Room Air 05/20/24 12:09
--- NOTE | 2024-05-20 12:18 | XR_ITS ---
Examination: CT abdomen and pelvis without contrast. Coronal 3-D reconstructions. Sagittal 2-D reconstructions. Date and time of exam:May 20, 2024 at 1443 hours Comparison April 29, 2024 INDICATIONS: Right-sided flank pain today, history right nephrostomy tube CTDI: vol (mGy): 14.2 DLP: (mGycm): 984 Technique: Axial images of the abdomen have been obtained, 3 mm slice thickness Intravenous contrast material has not been administered. Low dose protocols were performed. One or more of the following dose reduction techniques were used; automated exposure control, adjustment of the mA and/or KV according to patient size, use of iterative reconstruction technique. Findings: No focal liver or splenic lesion Tiny gallstones No pancreatic or adrenal mass Right nephrostomy tube satisfactory position, mild right hydronephrosis Aorta normal size Normal appendix Persistent 10 mm mid to distal right ureteral calculus Bladder intact No pelvic mass IMPRESSION: Right nephrostomy tube satisfactory position, mild right hydronephrosis Persistent 10 mm right ureteral calculus
[2024-05-20 13:03] LABS: Collection Type, Urine Clean Catch; RBC,Urine 0 /hpf (0-3); Squamous Epithelial Cell,Urine 0 /hpf (0-5); WBC,Urine 0 /hpf (0-5)
[2024-05-20 13:08] LABS: Basophils % (Auto) 0 % (0-2.5); Eosinophils # (Auto) 0.3 Thou/mm3 (0.0-0.5); Eosinophils % (Auto) 4 % (0-10); Hematocrit 44.5 % (41.0-53.0); Hemoglobin 15.6 g/dL (13.5-16.0); Immature Granulocytes % (Auto) 1 % (0-0); Immature Granulocytes Auto 0.07 Thou/mm3 (0.00-0.00); Lymphocytes # (Auto) 2.2 Thou/mm3 (1.0-4.8); Lymphocytes % (Auto) 27 % (10-50); Mean Corpuscular HGB Conc 35.1 g/dl (31.0-37.0); Mean Corpuscular Hemoglobin 28.2 pg (25.0-35.0); Mean Corpuscular Volume 80 fL (80-100); Monocytes # (Auto) 0.6 Thou/mm3 (0.0-0.8); Monocytes % (Auto) 7 % (0-12); Neutrophils % (Auto) 61 % (37-80); Nucleated Red Blood Cell % 0 /100 WBC (0); Platelet Count 239 Thou/mm3 (140-440); RDW Standard Deviation 37.4 fL (35.1-43.9); Red Blood Count 5.54 Miln/mm3 (4.50-5.90); White Blood Count 8.1 Thou/mm3 (3.8-10.6)
[2024-05-20 13:13] LABS: Alanine Aminotransferase 48 U/L (10-49); Albumin, Serum 4.5 gm/dL (3.5-5.0); Albumin/Globulin Ratio 1.5 (1.2-2.2); Alkaline Phosphatase 174 U/L (46-116); Anion Gap 9 (7-16); Aspartate Amino Transferase 25 U/L (0-34); BUN/Creatinine Ratio 18 Ratio (12-20); Bilirubin,Total 0.6 mg/dL (0.3-1.2); Blood Urea Nitrogen 20 mg/dL (9-23); Calcium 9.5 mg/dL (8.3-10.6); Calcium (Corrected) 9.5 mg/dL (8.5-10.1); Carbon Dioxide 27.6 mMol/L (20.0-31.0); Chloride 103 mMol/L (98-107); Creatinine (Component) 1.1 mg/dL (0.6-1.3); Estimated Creatinine Clearance 122.3 mL/min (>60); Glucose 118 mg/dL (74-106); Lipase 30 U/L (12-53); Osmolality,Calculated 283 (275-295); Potassium 3.5 mMol/L (3.4-5.1); Sodium 140 mMol/L (136-145); Total Protein 7.5 gm/dL (5.7-8.2); eGFR > 60 See Note
[2024-05-20 16:38] VITALS: BP 131/90; PULSE 75; RESP 19; TEMP 36.7; O2SAT 98
--- NOTE | 2024-05-20 16:51 | PD.EDADULT ---
ED General RME/HPI General Chief complaint: Urogenital-Male Stated complaint: UTI, Neph. tube not draining Time Seen by Provider: 05/20/24 16:47 Arrival date/time: 05/20/24 11:43 CC: Nephrostomy tube right side stopped draining HPI ongoing for the past 2 days. Patient states he has no pain. Patient has had nephrostomy tubes has been to 7 secondary to a large stone. Is followed up by Dr. Caceres, this particular nephrostomy tube has been in for several weeks. Patient denies fever chills chest pain shortness of breath or difficulty breathing Patient states he has an appointment on the of this month for stone removal but urology told him he needs a functioning nephrostomy tube before the procedure can take place. Patient states each time she comes in he has a urinary tract infection and when he runs out of antibiotics the symptoms return. Patient has no other complaints. RME / HPI RME / HPI narrative: 05/20/24 11:43 33-year-old male with nephrostomy in place presents emerged part today with complaints of sediment in his nephrostomy tube and lower abdominal pain Related Data Home Medications ?Medication ?Instructions ?Recorded ?Confirmed cephalexin 500 mg capsule 500 mg PO TID 03/04/24 04/15/24 hydrochlorothiazide 25 mg tablet 25 mg PO QDAY 03/04/24 04/15/24 lisinopril 10 mg tablet 10 mg PO QDAY 03/04/24 04/15/24 ondansetron 4 mg disintegrating 4 mg PO TID PRN Nausea And Vomiting 03/04/24 04/15/24 tablet Previous Rx's ?Medication ?Instructions ?Recorded cefdinir 300 mg capsule 300 mg PO BID #14 caps 03/14/24 cefdinir 300 mg capsule 300 mg PO BID #6 caps 04/19/24 cefdinir 300 mg capsule 300 mg PO BID #14 caps 04/30/24 Allergies Allergy/AdvReac Type Severity Reaction Status Date / Time clindamycin Allergy Difficulty Verified 05/20/24 11:48 Swallowing Review of Systems Review of Systems Narrative Review of Systems: GEN: No fever, no chills, no weight loss EYES: No discharge, no visual changes, no pain HEENT: No ear pain, no congestion, no sore throat PULM: No shortness of breath, no cough, no congestion CV: No chest pain, no dyspnea on exertion, no palpitations GI: No nausea, no vomiting, no diarrhea, no pain, no constipation : No frequency, no urgency, no dysuria MUSC/SKEL: No joint pain, no back pain SKIN: No rash PSYCH: No hallucinations, no depression HEME/LYMPH: No easy bleeding or bruising tendencies NEURO: No weakness, no headache Past Medical History Past Medical History NEUROLOGIC: Negative Neurological Disorders or Seizures CARDIAC: Positive Cardiac Disorders and Hypertension; Negative Congestive Heart Failure RESPIRATORY: Negative Chronic Obstructive Pulmonary Disease (COPD), Asthma, Pneumonia, Tuberculosis or Sleep Apnea GASTROINTESTINAL: Positive Obesity; Negative Gastrointestinal Disorders or Hepatitis GENITOURINARY: Positive Genitourinary Disorders and Kidney Stones; Negative Renal Disease MUSCULOSKELETAL: Positive Musculoskeletal Disorders and Fractures (RIBS IN THE PAST) ENDOCRINE: Negative Endocrine Disorders, Diabetes Mellitus Type 1 or Diabetes Mellitus Type 2 HEMATOLOGIC: Negative Blood Disorders or Sickle Cell Disease OTHER HISTORY: Negative Hospitalization, Autoimmune Disease, Shingles, Falls, Blood Transfusions, Blood Transfusion Reaction, Anesthesia Reactions, Chemotherapy, Radiation Therapy, MRSA, Chicken Pox, Measles, Mumps or Cancer Family History FAMILY HISTORY: Positive Family Cancer and Family Surgery; Negative Family Psychiatric Problems, Family Respiratory Disorders, Family Cardiac Disorders, Family Gastrointestinal Problems or Family Anesthesia Reaction Social History SMOKING STATUS: Current every day smoker SECOND HAND EXPOSURE: No ED Exam Narrative Physical exam: [General: Obese not in any acute distress Head normocephalic HEENT: Within acceptable limits Neck is supple nontender Chest equal chest rise nontender to palpation Respiratory: Clear to auscultation no wheezes crackles or rubs CV: Rate rhythm is regular no murmurs rubs or clicks Abdomen is distended secondary to body habitus soft nontender no masses positive bowel sounds all 4 quadrants Back: Nephrostomy tube protruding from the right side dressing is dirty but intact, no surrounding erythema or edema. No exudate or oozing of urine from urostomy site. No CVA tenderness no spinous process tenderness from cervical spine thoracic and lumbar spine Skin: Intact no petechiae rash induration ulceration or crepitus Extremities: Moving all extremity against resistance cap refill less than 2 seconds neurosensory intact Neuro: Awake alert oriented x3 Glascow coma 15 no focal deficits] Course Course Course Narrative: Patient CTs finding discussed with Dr. Oh, who states the patient needs to return tomorrow for infusion of a clot Buster into the nephrostomy tube if that does not work then the tube needs to be replaced. Patient is in agreement with this plan. Quality Measures none Orders Category Date Time Status CT abdomen pelvis wo con Stat Exams 05/20/24 12:18 Completed CBC Stat Lab 05/20/24 12:24 Completed Comprehensive Metabolic Panel Stat Lab 05/20/24 12:24 Completed Lipase Stat Lab 05/20/24 12:24 Completed UA, C/S IF [Urinalysis, C/S if Indicated] Stat Lab 05/20/24 12:57 Completed Vital Signs Vital signs: Vital Signs Temperature 98.9 F 05/20/24 12:09 Pulse Rate 91 05/20/24 12:09 Respiratory Rate 18 05/20/24 12:09 Blood Pressure 144/91 H 05/20/24 12:09 Pulse Oximetry (%) 96 05/20/24 12:09 Oxygen Delivery Method Room Air 05/20/24 12:09 [facility] Patient data External records reviewed:: [facility] previous records Clinical information provided by:: patient Social determinants that could affect healthcare access:: none Patient has the following chronic illnesses:: Urolithiasis with nephrostomy tube How is presenting disease/condition affected by chronic disease/condition?: exacerbated by Evaluation data The following diagnostics were reviewed and interpreted by me:: lab results and radiology exam(s) Lab and/or radiology exams considered but not ordered:: CBC shows no acute leukocytosis anemia thrombocytopenia CMP showed no significant electrolyte imbalances other than a mild elevated glucose at 118 no renal impairment alk phos at 174 no transaminitis or T. bili elevation Lipase of 30 CT of the abdomen shows a nephrostomy tube in satisfactory position with mild right hydronephrosis. 10 mm right ureteral stone noted. Interpretation Summary: Obstructed nephrostomy tube Medications Medications considered but not ordered:: None Medication administrations:: None Consultations Consultation(s) initiated? (list below): No Diagnosis Differential Diagnosis ED Complaint MDM: UTI obstructed nephrostomy tube nephrostomy tube failure Most likely diagnosis given after review of the tests above:: Obstructed nephrostomy tube Admission Indicated Admission indicated?: not indicated Explain why admission is indicated or not indicated:: None Admission Request Was there a request for admission?: No Disposition Plan Disposition Plan: Discharge Discharge Attestation Discharge Attestation: The patient and all family members were given an opportunity to ask questions and understood the discharge instructions. Discharge instructions specifically effects, indications for sooner follow up or return to the emergency department, and the expected course of current diagnosis. Patient condition: Stable Medical Decision Making Differential Diagnosis Differential Diagnosis: UTI obstructed nephrostomy tube nephrostomy tube failure Lab Data 05/20/24 12:24 05/20/24 12:24 Labs: Lab Results 05/20/24 05/20/24 Range/Units 12:24 12:57 WBC 8.1 (3.8-10.6) Thou/mm3 RBC 5.54 (4.50-5.90) Miln/mm3 Hgb 15.6 (13.5-16.0) g/dL Hct 44.5 (41.0-53.0) % MCV 80 (80-100) fL MCH 28.2 (25.0-35.0) pg MCHC 35.1 (31.0-37.0) g/dl RDW Std Deviation 37.4 (35.1-43.9) fL Plt Count 239 (140-440) Thou/mm3 Neut % (Auto) 61 (37-80) % Lymph % (Auto) 27 (10-50) % [place] % (Auto) 7 (0-12) % Eos % (Auto) 4 (0-10) % Baso % (Auto) 0 (0-2.5) % Neut # (Auto) 5.0 (1.8-7.7) Thou/mm3 Lymph # (Auto) 2.2 (1.0-4.8) Thou/mm3 [place] # (Auto) 0.6 (0.0-0.8) Thou/mm3 Eos # (Auto) 0.3 (0.0-0.5) Thou/mm3 Baso # (Auto) 0.0 (0.0-0.2) Thou/mm3 Immature Gran # (Auto) 0.07 H (0.00-0.00) Thou/mm3 Absolute Nucleated RBC 0.00 (0.00-0.00) Thou/mm3 Immature Gran % 1 H (0-0) % Nucleated RBC % 0 (0) /100 WBC Sodium 140 (136-145) mMol/L Potassium 3.5 (3.4-5.1) mMol/L Chloride 103 (98-107) mMol/L Carbon Dioxide 27.6 (20.0-31.0) mMol/L Anion Gap 9 (7-16) BUN 20 (9-23) mg/dL Creatinine 1.1 (0.6-1.3) mg/dL Estim Creat Clear Calc 122.3 (>60) mL/min eGFR > 60 (60 - ) See Note BUN/Creatinine Ratio 18 (12-20) Ratio Glucose 118 H (74-106) mg/dL Calculated Osmolality 283 (275-295) Calcium 9.5 (8.3-10.6) mg/dL Corrected Calcium 9.5 (8.5-10.1) mg/dL Total Bilirubin 0.6 (0.3-1.2) mg/dL AST 25 (0-34) U/L ALT 48 (10-49) U/L Alkaline Phosphatase 174 H (46-116) U/L Total Protein 7.5 (5.7-8.2) gm/dL Albumin 4.5 (3.5-5.0) gm/dL Globulin 3.0 (2.3-3.5) gm/dL Albumin/Globulin Ratio 1.5 (1.2-2.2) Lipase 30 (12-53) U/L Ur Collection Type Clean Catch Urine Color Yellow (Lt Yel-Yel) Urine Clarity Turbid A (Clear/Hazy) Urine pH 8.0 H (5.0-7.0) Ur Specific [place] 1.024 (1.001-1.035) Urine Protein 2+ A (Neg - Trace) Urine Glucose (UA) Negative (Negative) Urine Ketones Negative (Negative) Urine Blood 2+ A (Negative) Urine Nitrite Negative (Negative) Urine Bilirubin Negative (Negative) Urine Urobilinogen (Auto) Negative (0.0-1.0) mg/dL Ur Leukocyte Esterase Positive (Negative) Urine RBC 0 (0-3) /hpf Urine WBC 0 (0-5) /hpf Ur Squamous Epith Cells 0 (0-5) /hpf Urine Bacteria None (None) Ur Culture Indicated? Not Indicated Discharge Plan Plan Patient Disposition: HOME (Self Care) Patient condition on transfer: Stable Prescriptions/Referrals Prescriptions/Med Rec: No Action cefdinir 300 mg capsule 300 mg PO BID Qty: 14 0RF cefdinir 300 mg capsule 300 mg PO BID Qty: 6 0RF lisinopril 10 mg tablet 10 mg PO QDAY Patient Comments: TAKE 1 TABLET BY MOUTH EVERY DAY hydrochlorothiazide 25 mg tablet 25 mg PO QDAY Patient Comments: TAKE 1 TABLET BY MOUTH EVERY DAY IN THE MORNING ondansetron 4 mg tablet,disintegrating 4 mg PO TID PRN (Reason: Nausea And Vomiting) Patient Comments: 4 MG ORALLY EVERY 8 HOURS NEEDED FOR NAUSEA AND VOMITING Rx Instructions: Q8 H PRN cephalexin 500 mg capsule 500 mg PO TID cefdinir 300 mg capsule 300 mg PO BID Qty: 14 0RF Referrals: Rosaline Arenas PA-C [Primary Care Provider] - In 1 week Problem List Clinical Impression: Obstructed nephrostomy tube Patient/Caregiver Discharge Instructions Other Activity Instructions:: Return tomorrow between 830 and 9:00 for nephrostomy tube repair or replacement. Print Language: Yi Stand Alone Forms: Leann Award Info., Work/School Release, Patient Portal Info Letter PA/LOUIS Supervising Physician PA/LOUIS Supervising Physician: Francesco Antoine ENP
[2024-05-20 16:58] LABS: Bilirubin,Urine Negative (Negative); Blood,Urine 2+ (Negative); Color,Urine Yellow (Lt Yel-Yel); Culture Indicated,Urine Not Indicated; Glucose, Urine Negative (Negative); Ketones,Urine Negative (Negative); Leukocyte Esterase,Urine Positive (Negative); Nitrite,Urine Negative (Negative); Protein,Urine 2+ (Neg - Trace); Specific Gravity,Urine 1.024 (1.001-1.035); Urobilinogen,Urine Negative mg/dL (0.0-1.0)
[2024-05-20 17:06] LABS: Clarity,Urine Turbid (Clear/Hazy)
== END 2024-05-20 17:18 | disposition home or self-care (01) ==
PROVIDERS: Nurse Practitioner Primary Care; Emergency Provider Emergency Medicine; PCP Physician Assistant
DX: N99.524 Stenosis of incontinent stoma of urinary tract (principal); R10.30 Lower abdominal pain, unspecified
CPT/HCPCS: 36415; 74176; 80053; 81001; 83690; 85025; 99284

== ENCOUNTER 2024-05-21 08:25 | Emergency (ER) | payer MEDICAID, SELFPAY ==
--- NOTE | 2024-05-21 | XR_ITS ---
Examination: IR fluoroscopically guided right nephrostogram AP abdomen single view Fluoroscopy May 21, 2024 0942 hours TECHNIQUE AND FINDINGS: Hand injection 10 cc Cystografin with declogging of the nephrostomy tube Filling of the nondistended calyces IMPRESSION: Nephrostogram as above Fluoroscopy 0.2 minute radiation dose 15.19 milligray 1 spot fluoroscopic film
[2024-05-21 08:38] VITALS: BP 152/102; PULSE 120; RESP 18; TEMP 37.1; O2SAT 96; BMI 37.3
--- NOTE | 2024-05-21 10:42 | PD.EDMALE ---
ED Male Genitalurinary RME/HPI General Chief complaint: Urogenital-Male Stated complaint: RETURN FO RIGHT NEPHROSTOMY TUBE; ER YESTERDAY Time Seen by Provider: 05/21/24 08:45 Arrival date/time: 05/21/24 08:25 33-year-old male presents emergency department today for concerns for right nephrostomy tube being clogged patient requesting to have his nephrostomy tube flushed patient was evaluated yesterday and told to come back today for reevaluation and IR intervention Limitations: no limitations Related Data Home Medications ?Medication ?Instructions ?Recorded ?Confirmed cephalexin 500 mg capsule 500 mg PO TID 03/04/24 04/15/24 hydrochlorothiazide 25 mg tablet 25 mg PO QDAY 03/04/24 04/15/24 lisinopril 10 mg tablet 10 mg PO QDAY 03/04/24 04/15/24 ondansetron 4 mg disintegrating 4 mg PO TID PRN Nausea And Vomiting 03/04/24 04/15/24 tablet Previous Rx's ?Medication ?Instructions ?Recorded cefdinir 300 mg capsule 300 mg PO BID #14 caps 03/14/24 cefdinir 300 mg capsule 300 mg PO BID #6 caps 04/19/24 cefdinir 300 mg capsule 300 mg PO BID #14 caps 04/30/24 Allergies Allergy/AdvReac Type Severity Reaction Status Date / Time clindamycin Allergy Difficulty Verified 05/21/24 08:27 Swallowing Review of Systems Review of Systems Systems Reviewed: All systems reviewed, normal except as documented Constitutional Constitutional: Reports system reviewed and no additional complaints, except as documented, Denies fever(s) and Denies headache(s) Eyes Eyes: Reports system reviewed and no additional complaints, except as documented and Denies blurry vision ENT Ears, Nose, Mouth, and Throat: Reports system reviewed and no additional complaints, except as documented, Denies headache(s), Denies nasal congestion and Denies nasal discharge Cardiovascular Cardiovascular: Reports system reviewed and no additional complaints, except as documented, Denies chest pain and Denies dyspnea Respiratory Respiratory: Reports system reviewed and no additional complaints, except as documented, Denies chest congestion, Denies cough and Denies dyspnea Gastrointestinal Gastrointestinal: Reports system reviewed and no additional complaints, except as documented and Denies abdominal pain Genitourinary Genitourinary: Reports system reviewed and no additional complaints, except as documented and Reports other (Nephrostomy tube right flank) Integumentary/Breasts Skin/Breast: Reports system reviewed and no additional complaints, except as documented and Denies rash Neurologic Neurologic: Reports system reviewed and no additional complaints, except as documented, Reports as per HPI and Denies headache(s) Past Medical History Past Medical History NEUROLOGIC: Negative Neurological Disorders or Seizures CARDIAC: Positive Cardiac Disorders and Hypertension; Negative Congestive Heart Failure RESPIRATORY: Negative Chronic Obstructive Pulmonary Disease (COPD), Asthma, Pneumonia, Tuberculosis or Sleep Apnea GASTROINTESTINAL: Positive Obesity; Negative Gastrointestinal Disorders or Hepatitis GENITOURINARY: Positive Genitourinary Disorders and Kidney Stones; Negative Renal Disease MUSCULOSKELETAL: Positive Musculoskeletal Disorders and Fractures (RIBS IN THE PAST) ENDOCRINE: Negative Endocrine Disorders, Diabetes Mellitus Type 1 or Diabetes Mellitus Type 2 HEMATOLOGIC: Negative Blood Disorders or Sickle Cell Disease OTHER HISTORY: Negative Hospitalization, Autoimmune Disease, Shingles, Falls, Blood Transfusions, Blood Transfusion Reaction, Anesthesia Reactions, Chemotherapy, Radiation Therapy, MRSA, Chicken Pox, Measles, Mumps or Cancer Family History FAMILY HISTORY: Positive Family Cancer and Family Surgery; Negative Family Psychiatric Problems, Family Respiratory Disorders, Family Cardiac Disorders, Family Gastrointestinal Problems or Family Anesthesia Reaction Social History SMOKING STATUS: Current every day smoker SECOND HAND EXPOSURE: No ED Exam General Limitations: Present no limitations General appearance: Present alert and in no apparent distress Head Head exam: Present atraumatic, normocephalic and normal inspection Eye Eye exam: Present normal appearance, PERRL and EOMI; Absent conjunctival injection ENT ENT exam: Present normal exam, normal oropharynx and mucous membranes moist Neck Neck exam: Present normal inspection, full ROM and trachea midline Chest Chest inspection: Present normal inspection and symmetric chest wall rise Respiratory Respiratory exam: Present normal lung sounds bilaterally Cardiovascular Cardiovascular exam: Present regular rate, normal rhythm and normal heart sounds Abdominal Exam Abdominal exam: Present soft and normal bowel sounds; Absent distention, tenderness, guarding, rebound, rigidity, Mckeon's sign, Rovsing's sign or tenderness at McBurney's Point Abdominal tenderness: Absent RUQ or RLQ Extremities Exam Extremities exam: Present normal inspection and full ROM Back Exam Back exam: Present normal inspection and full ROM Neurological Exam Neurological exam: Present alert, oriented X3 and CN II-XII intact Psychiatric Psychiatric exam: Present normal affect and normal mood Skin Skin exam: Present warm, dry, intact and normal color Course Quality Measures none Orders Category Date Time Status IR nephrostogram RT Stat Exams 05/21/24 Completed Lidocaine 1% Pf 30 ml [Xylocaine 1% Pf 30 ml] Med 05/21/24 10:00 Discontinued 30 ml .ROUTE .STK-MED ONE Vital Signs Vital signs: Vital Signs Temperature 98.8 F 05/21/24 08:38 Pulse Rate 120 H 05/21/24 08:38 Respiratory Rate 18 05/21/24 08:38 Blood Pressure 152/102 H 05/21/24 08:38 Pulse Oximetry (%) 96 05/21/24 08:38 Oxygen Delivery Method Room Air 05/21/24 08:38 O2 saturation 96% room air within normal limits Urogenital - Male MDM Narrative MDM Narrative:: 33-year-old male presents emergency department today for concerns for right nephrostomy tube being clogged patient requesting to have his nephrostomy tube flushed patient was evaluated yesterday and told to come back today for reevaluation and IR intervention On exam patient well-appearing patient does not appear ill or toxic and in no acute distress On exam patient's nephrostomy tube appears to be in place and working but he does report that he would like to be flushed Patient sent to IR intervention was completed there Patient discharged home in no distress to follow-up with primary care doctor in the next 24 to 48 hours and for any worsening symptoms to return to the ER immediately Patient data External records reviewed:: [facility] previous records Clinical information provided by:: patient Social determinants that could affect healthcare access:: none Patient has the following chronic illnesses:: See history How is presenting disease/condition affected by chronic disease/condition?: caused by Evaluation data The following diagnostics were reviewed and interpreted by me:: other (specify) (N/A) Lab and/or radiology exams considered but not ordered:: Consider not ordered Interpretation Summary: N/A Medications / Prescriptions Medications or Prescriptions considered but not ordered:: No meds Medication administrations:: Medication Administration History Discontinued Medications Lidocaine HCl (Lidocaine Inj Pf 1% 30 Ml Vial) Confirm Administered Dose 30 ml .ROUTE .STK-MED ONE Stop: 05/21/24 10:01 No meds Consultations Consultation(s) initiated? (list below): No Diagnosis Urogenital Male Differential Diagnosis: urinary tract infection and other (Nephrostomy tube dislodged, nephrostomy tube problem) Most likely diagnosis given after review of the tests above:: Nephrostomy tube problem Admission Indicated Admission indicated?: not indicated Admission Request Was there a request for admission?: No Disposition Plan Disposition Plan: Discharge Discharge Attestation Discharge Attestation: The patient and all family members were given an opportunity to ask questions and understood the discharge instructions. Discharge instructions specifically effects, indications for sooner follow up or return to the emergency department, and the expected course of current diagnosis. Patient condition: Stable Discharge Plan Plan Patient Disposition: HOME (Self Care) Disposition Comment: Stable Prescriptions/Referrals Prescriptions/Med Rec: No Action cefdinir 300 mg capsule 300 mg PO BID Qty: 14 0RF cefdinir 300 mg capsule 300 mg PO BID Qty: 6 0RF lisinopril 10 mg tablet 10 mg PO QDAY Patient Comments: TAKE 1 TABLET BY MOUTH EVERY DAY hydrochlorothiazide 25 mg tablet 25 mg PO QDAY Patient Comments: TAKE 1 TABLET BY MOUTH EVERY DAY IN THE MORNING ondansetron 4 mg tablet,disintegrating 4 mg PO TID PRN (Reason: Nausea And Vomiting) Patient Comments: 4 MG ORALLY EVERY 8 HOURS NEEDED FOR NAUSEA AND VOMITING Rx Instructions: Q8 H PRN cephalexin 500 mg capsule 500 mg PO TID cefdinir 300 mg capsule 300 mg PO BID Qty: 14 0RF Referrals: Rosaline Arenas PA-C [Primary Care Provider] - In 1 week Problem List Clinical Impression: Obstructed nephrostomy tube Patient/Caregiver Discharge Instructions Additional Instructions: Please follow-up with Dr. Caceres on the as discussed for worsening symptoms return immediately Print Language: Bengali Stand Alone Forms: Leann Award Info., Patient Portal Info Letter PA/LOUIS Supervising Physician EDIE Supervising Physician: Dr Feliz
[2024-05-21 10:46] VITALS: PULSE 94; O2SAT 99
== END 2024-05-21 11:23 | disposition home or self-care (01) ==
PROVIDERS: Emergency Provider Emergency Medicine; PCP Physician Assistant
DX: T83.092A Other mechanical complication of nephrostomy catheter, initial encounter (principal); I10 Essential (primary) hypertension; E66.9 Obesity, unspecified; Z68.37 Body mass index [BMI] 37.0-37.9, adult; F17.210 Nicotine dependence, cigarettes, uncomplicated; Y73.2 Prosthetic and other implants, materials and accessory gastroenterology and urology devices associated with adverse incidents; Y84.8 Other medical procedures as the cause of abnormal reaction of the patient, or of later complication, without mention of misadventure at the time of the procedure
CPT/HCPCS: 50431; 99284; J7050; Q9958

== ENCOUNTER 2024-05-22 08:53 | Emergency (ER) | payer MEDICAID, SELFPAY ==
--- NOTE | 2024-05-22 | XR_ITS ---
Examination: IR suturing nephrostomy tube Fluoroscopy AP abdomen single view Exam date and time: May 22, 2024 1024 hours INDICATIONS: Leaking at the nephrostomy tube insertion site today TECHNIQUE AND FINDINGS: Skin prepped over the nephrostomy site and sterile drape applied maximum sterile barrier technique hand hygiene 1% lidocaine administered for local anesthesia Seen measuring around the nephrostomy entrance to prevent leaking Fluoroscopy 0.1 minute radiation dose 11.71 milligray 1 spot fluoroscopic abdomen films IMPRESSION: Successful IR suturing nephrostomy tube entrance
[2024-05-22 08:53] VITALS: BMI 37.3
[2024-05-22 09:22] VITALS: BP 155/94; PULSE 98; RESP 18; TEMP 37.1; O2SAT 98
[2024-05-22] MEDS: LIDOCAINE INJ PF 1% 30 ML VIAL INFL (10:59)
--- NOTE | 2024-05-22 11:17 | PD.EDADULT ---
ED General RME/HPI General Chief complaint: General Adult/Misc Complain Stated complaint: Nephrostomy tube leaking at insertion site Time Seen by Provider: 05/22/24 09:27 Source: patient Arrival date/time: 05/22/24 08:53 This is a 33-year-old male who presented to the emergency department with complaints that he has nephrostomy tube dressing is leaking recently replaced and resutured yesterday in the IR department. Patient reports he is had that nephrostomy tube since 3 to 4 months. He is awaiting his urology appointment at the end of the month. Denies any fever, chills no rigors no other complaints. Mode of arrival: ambulatory Related Data Home Medications ?Medication ?Instructions ?Recorded ?Confirmed cephalexin 500 mg capsule 500 mg PO TID 03/04/24 04/15/24 hydrochlorothiazide 25 mg tablet 25 mg PO QDAY 03/04/24 04/15/24 lisinopril 10 mg tablet 10 mg PO QDAY 03/04/24 04/15/24 ondansetron 4 mg disintegrating 4 mg PO TID PRN Nausea And Vomiting 03/04/24 04/15/24 tablet Previous Rx's ?Medication ?Instructions ?Recorded cefdinir 300 mg capsule 300 mg PO BID #14 caps 03/14/24 cefdinir 300 mg capsule 300 mg PO BID #6 caps 04/19/24 cefdinir 300 mg capsule 300 mg PO BID #14 caps 04/30/24 Allergies Allergy/AdvReac Type Severity Reaction Status Date / Time clindamycin Allergy Difficulty Verified 05/21/24 08:27 Swallowing Review of Systems Review of Systems Systems Reviewed: All systems reviewed, normal except as documented Narrative Review of Systems: Gen: No fever, no chills, no weight loss EYES: No discharge, no visual changes, no pain HEENT: No ear pain, no congestion, no sore throat PULM: No shortness of breath, no cough, no congestion CV: No chest pain, no dyspnea on exertion, no palpitations GI: No nausea, no vomiting, no diarrhea, no pain, no constipation : No frequency, no urgency, no dysuria Musc/skel: No joint pain, no back pain Skin: No rash Psyc: No hallucinations, no depression Heme/Lymph: No easy bleeding or bruising tendencies Neuro: No weakness, no headache Cats ED Exam Narrative Physical exam: Obese not in any acute distress Head normocephalic HEENT: Within acceptable limits Neck is supple nontender Chest equal chest rise nontender to palpation Respiratory: Clear to auscultation no wheezes crackles or rubs CV: Rate rhythm is regular no murmurs rubs or clicks Abdomen is distended secondary to body habitus soft nontender no masses positive bowel sounds all 4 quadrants Back: Nephrostomy tube protruding from the right side dressing is dirty but intact, no surrounding erythema or edema. No exudate or oozing of urine from urostomy site. No CVA tenderness no spinous process tenderness from cervical spine thoracic and lumbar spine Skin: Intact no petechiae rash induration ulceration or crepitus Extremities: Moving all extremity against resistance cap refill less than 2 seconds neurosensory intact Neuro: Awake alert oriented x3 Glascow coma 15 no focal deficits] Course Quality Measures none Orders Category Date Time Status IR nephrostogram RT Stat Exams 05/22/24 Completed Lidocaine 1% Pf 30 ml [Xylocaine 1% Pf 30 ml] Med 05/22/24 10:40 Discontinued 30 ml .ROUTE .STK-MED ONE Lidocaine 1% Pf 30 ml [Xylocaine 1% Pf 30 ml] Med 05/22/24 10:47 Discontinued 30 ml INFL X1 ONE Vital Signs Vital signs: Vital Signs Temperature 98.7 F 05/22/24 09:22 Pulse Rate 98 05/22/24 09:22 Respiratory Rate 18 05/22/24 09:22 Blood Pressure 155/94 H 05/22/24 09:22 Pulse Oximetry (%) 98 05/22/24 09:22 Oxygen Delivery Method Room Air 05/22/24 09:22 [facility] Patient data External records reviewed:: [facility] previous records Clinical information provided by:: patient Social determinants that could affect healthcare access:: none Patient has the following chronic illnesses:: Nephrolithiasis How is presenting disease/condition affected by chronic disease/condition?: exacerbated by Evaluation data The following diagnostics were reviewed and interpreted by me:: other (specify) Lab and/or radiology exams considered but not ordered:: None Interpretation Summary: None Medications Medications considered but not ordered:: None Medication administrations:: Medication Administration History Discontinued Medications Lidocaine HCl (Lidocaine Inj Pf 1% 30 Ml Vial) Confirm Administered Dose 30 ml .ROUTE .STK-MED ONE Stop: 05/22/24 10:41 Last Admin: 05/22/24 11:02 Dose: Not Given Documented By: DB Non-Admin Reason: Duplicate Medication on eMAR Lidocaine HCl (Lidocaine Inj Pf 1% 30 Ml Vial) 30 ml INFL X1 ONE Stop: 05/22/24 10:48 Last Admin: 05/22/24 10:59 Dose: 4 ml Documented By: DARRION Comments: per dr. kaiser. All medications administered and effective Consultations Consultation(s) initiated? (list below): Yes Consultation #1 (Physician, Specialty, Details): I spoke with radiologist in the IR department who will gladly revise the patient's nephrostomy tube resuture and will redress. Patient was sent to the IR department for procedure. Diagnosis Differential Diagnosis ED Complaint MDM: Nephrostomy tube care, flank gastrostomy tube. Dislodged nephrostomy tube Most likely diagnosis given after review of the tests above:: Nephrostomy tube care and flush Admission Indicated Admission indicated?: not indicated Explain why admission is indicated or not indicated:: Can follow-up outpatient Admission Request Was there a request for admission?: No Disposition Plan Disposition Plan: Discharge Discharge Attestation Discharge Attestation: The patient and all family members were given an opportunity to ask questions and understood the discharge instructions. Discharge instructions specifically effects, indications for sooner follow up or return to the emergency department, and the expected course of current diagnosis. Patient condition: Stable Medical Decision Making Differential Diagnosis Differential Diagnosis: Nephrostomy tube care, flank gastrostomy tube. Dislodged nephrostomy tube Discharge Plan Plan Patient Disposition: HOME (Self Care) Prescriptions/Referrals Prescriptions/Med Rec: No Action cefdinir 300 mg capsule 300 mg PO BID Qty: 14 0RF cefdinir 300 mg capsule 300 mg PO BID Qty: 6 0RF lisinopril 10 mg tablet 10 mg PO QDAY Patient Comments: TAKE 1 TABLET BY MOUTH EVERY DAY hydrochlorothiazide 25 mg tablet 25 mg PO QDAY Patient Comments: TAKE 1 TABLET BY MOUTH EVERY DAY IN THE MORNING ondansetron 4 mg tablet,disintegrating 4 mg PO TID PRN (Reason: Nausea And Vomiting) Patient Comments: 4 MG ORALLY EVERY 8 HOURS NEEDED FOR NAUSEA AND VOMITING Rx Instructions: Q8 H PRN cephalexin 500 mg capsule 500 mg PO TID cefdinir 300 mg capsule 300 mg PO BID Qty: 14 0RF Problem List Clinical Impression: Obstructed nephrostomy tube, Encounter for wound care Patient/Caregiver Discharge Instructions Discharge Activity: activity as tolerated Education Materials: Wound Care Additional Instructions: Please make sure that with your checking clerk, urologist. Keep area clean and dry attempt not to sleep on the area that you might pull accidentally. Make sure urine is draining. Return to the emergency department this any worsening symptoms change in condition. Print Language: Tajik Stand Alone Forms: Leann Award Info., Patient Portal Info Letter PA/VICE PRESIDENT OF PRODUCT MARKETING Supervising Physician PA/VICE PRESIDENT OF PRODUCT MARKETING Supervising Physician: Dr Feliz
== END 2024-05-22 11:22 | disposition home or self-care (01) ==
LOC: SERX 11:40
PROVIDERS: Emergency Provider Emergency Medicine
DX: T83.092A Other mechanical complication of nephrostomy catheter, initial encounter (principal); Y83.2 Surgical operation with anastomosis, bypass or graft as the cause of abnormal reaction of the patient, or of later complication, without mention of misadventure at the time of the procedure
CPT/HCPCS: 53899; 99284; J3490

== ENCOUNTER 2024-05-29 09:50 | Day surgery (SDC) | payer MEDICAID, SELFPAY ==
[2024-05-28 14:18] VITALS: BMI 37.3
[2024-05-28 19:11] LABS: Alanine Aminotransferase 30 U/L (10-49); Albumin, Serum 4.3 gm/dL (3.5-5.0); Albumin/Globulin Ratio 1.7 (1.2-2.2); Alkaline Phosphatase 152 U/L (46-116); Anion Gap 12 (7-16); Aspartate Amino Transferase 21 U/L (0-34); BUN/Creatinine Ratio 16 Ratio (12-20); Bilirubin,Total 0.7 mg/dL (0.3-1.2); Blood Urea Nitrogen 19 mg/dL (9-23); Calcium 9.3 mg/dL (8.3-10.6); Calcium (Corrected) 9.3 mg/dL (8.5-10.1); Carbon Dioxide 25.3 mMol/L (20.0-31.0); Chloride 106 mMol/L (98-107); Creatinine (Component) 1.2 mg/dL (0.6-1.3); Estimated Creatinine Clearance 118.3 mL/min (>60); Globulin 2.5 gm/dL (2.3-3.5); Glucose 114 mg/dL (74-106); Osmolality,Calculated 288 (275-295); Potassium 4.2 mMol/L (3.4-5.1); Sodium 143 mMol/L (136-145); Total Protein 6.8 gm/dL (5.7-8.2); eGFR > 60 See Note
[2024-05-29] VITALS (7 sets, daily range): BP systolic 142–154; BP diastolic 86–93; PULSE 77–94; RESP 12–18; TEMP 36.1–36.6; O2SAT 92–97; BMI 37.1
--- NOTE | 2024-05-29 07:16 | XR_ITS ---
Examination: Right retrograde pyelogram with without KUB Fluoroscopy AP abdomen 2 views Exam date and time: May 29, 2024 1606 hrs. Indications: History right flank pain right hydronephrosis 13 mm proximal right ureteral calculus history post right ureteral stent placement, replacement ureteral stent today Technique And Findings: 2 spot fluoroscopic films of the abdomen Opacification of nondilated right renal calyces Right percutaneous nephrostomy Right ureteral stent lower portion satisfactory position Fluoroscopy 50 seconds 2 spot films of the abdomen radiation dose 10.61 milligray Impression: Right retrograde pyelogram as above
[2024-05-29] MEDS: VANCOMYCIN/NS 1 GM IVPB 200 ML IV (10:40)
[2024-05-29] MEDS: RINGERS LACTATED 1000 ML 1,000 ML 20 ML IV (10:40)
--- NOTE | 2024-05-29 15:28 | SUR.PHASEI ---
pt received from OR in recovery bay 5. pt asleep but responds to voice, breathing unlabored on nc 6l. v/s stable. pt dressing to lower back cdi. report received from Dr. Alicea and Manuel MONCADA.
--- NOTE | 2024-05-29 15:52 | SUR.PHASEI ---
pt able to tolerate oral fluids without difficulty swallowing or nausea/vomiting.
--- NOTE | 2024-05-29 16:25 | SUR.PHASEII ---
pt awake and alert, breathing unlabored on room air. v/s stable. pt dressing to right lower back cdi. pt able to ambulate to wheelchair with steady gait. d/c instructions given with Anh in room, all questions answered. pt d/c via wheelchair with all belongings.
--- NOTE | 2024-05-29 17:56 | ESOP_ITS ---
RE: JOSE C LINK : 1990 DATE OF OPERATION: 05/29/2024 PREPROCEDURE DIAGNOSES: 1+ cm proximal ureteral stone right ureter, percutaneous nephrostomy tube drainage of right upper urinary tract. POSTPROCEDURE DIAGNOSES: Status post ureteroscopic surgery with laser stone fragmentation, stone removal and placement of indwelling ureteral stent right. PROCEDURE PERFORMED: Fluoroscopic imaging of upper urinary tract; cystoscopy; retrograde pyelogram under fluoroscopic control right, ureteroscopic surgery with laser stone fragmentation; stone basketing x40 plus with rigid and flexible instrumentation; placement of indwelling ureteral stent for right renal drainage; removal of percutaneous nephrostomy tube, right. SURGEON: Jesús Lopez MD CONTROL CLERK REPAIRS SURGEON: Irene Caceres MD ANESTHESIA: General INDICATIONS: This patient is a 33-year-old gentleman who is referred for surgical management of a tightly impacted 1+ cm proximal ureteral stone above the iliac crest. The patient had a percutaneous nephrostomy tube for drainage of the obstructed right kidney in place. Today, he comes for ureteroscopic surgery with endoscopic stone fragmentation and active stone removal. Provided this procedure will succeed in removal of all stone, the percutaneous nephrostomy tube can be removed. This was discussed with the patient in detail along with risks, benefits, and alternatives and appropriate consent was obtained. DESCRIPTION OF FINDINGS: Fluoroscopically, the stone cannot be well visualized as it overlies the bony pelvis at L5 level. The nephrostomy tube appears to be in correct position. The nephrostomy tube drains clear urine. Endoscopically, the lower urinary tract urethra, prostate, bladder is unremarkable. Retrograde pyelogram shows a normal ureter medially deviated over the collateral pelvis and with a filling defect consistent with known stone with dilation of the ureter above that level and mild to moderate distention of the renal collecting system. Endoscopic evaluation of the ureter shows the impacted stone impacted by edema. The stone is fragmented with laser energy and the resultant pieces are removed with rigid and flexible instrumentation. All stone material larger 1 mm is actively removed. Some stone material washed up in the kidney is removed with flexible instrumentation. In this fashion, all stone material is cleared larger than 1 mm. Contrast is again injected confirming the integrity of the right upper urinary tract and indwelling stent was placed over the safety wire and under fluoroscopic and endoscopic control positioned correctly in kidney and bladder. The bladder was emptied. The percutaneous nephrostomy tube was removed. The patient was awakened and returned to recovery where he arrived in satisfactory condition. PROCEDURE: Prior to initiation of anesthesia, the patient was appropriately identified by the surgeon and operating room personnel. Indications for surgery, site, and scope of surgery are reconfirmed with the patient. The patient received perioperative antibiotics intravenously. After induction of general anesthesia, patient was positioned on the endoscopy table in lithotomy position. The outer genitalia was prepped and draped in sterile fashion. A 21-[place]izen [place] cystoscope was advanced into the bladder. Safety wire was placed under fluoroscopic control. The patient received 20 mg of Lasix intravenously to induce diuresis and reduce the risk of pyelovenous reflux and infectious complications during the surgical procedure. Formal optical dilation of the ureter was performed using a 9.5-[place]izen [place] semi-rigid instrument. Fluoroscopically, the stone cannot be well visualized as it overlies the bony pelvis at L5 level. The nephrostomy tube appears to be in correct position. The nephrostomy tube drains clear urine. Endoscopically, the lower urinary tract urethra, prostate, bladder is unremarkable. Retrograde pyelogram shows a normal ureter medially deviated over the collateral pelvis and with a filling defect consistent with known stone with dilation of the ureter above that level and mild to moderate distention of the renal collecting system. Endoscopic evaluation of the ureter shows the impacted stone impacted by edema. The stone is fragmented with laser energy and the resultant pieces are removed with rigid and flexible instrumentation. All stone material larger 1 mm is actively removed. Some stone material washed up in the kidney is removed with flexible instrumentation. In this fashion, all stone material is cleared larger than 1 mm. Contrast is again injected confirming the integrity of the right upper urinary tract and indwelling stent was placed over the safety wire and under fluoroscopic and endoscopic control positioned correctly in kidney and bladder. The bladder was emptied. The percutaneous nephrostomy tube was removed. The patient was awakened and returned to recovery where he arrived in satisfactory condition. ESTIMATED BLOOD LOSS: Minimal, basically 0. COMPLICATIONS: None. SPECIMENS: Stone material for chemical analysis. DISPOSITION: The patient will be discharged home from the outpatient surgical area. He will return to Dr. Caceres's office within one to two weeks for removal of the indwelling urethral stent. DT: 15:24:55 TT: 16:54:00 Ref: [id number] - TID: [id number] MTDD
== END 2024-05-29 16:25 | disposition home or self-care (01) ==
PROVIDERS: Anesthesiology; PCP Physician Assistant; Referring Provider Specialist; Visit Provider Urology
PROC: 0TJB8ZZ Inspection of Bladder, Via Natural or Artificial Opening Endoscopic (ICD-10-PCS; CPT 52000; principal; 2024-05-29 12:45)
DX: N20.1 Calculus of ureter (principal)
CPT/HCPCS: 52356; 36415; 74420; 80053; 82365; A4217; A4649; C1769; C1889; C1894; C2617; J1100; J1580; J1940; J2405; J2704; J2710; J3010; J3370; J3490; J7120; J1596

== ENCOUNTER → 2024-06-23 | Outpatient (BNVA) | payer MEDICAID, SELFPAY | END | disposition home or self-care (01) | PROVIDERS: PCP Physician Assistant; Referring Provider Physician Assistant; Visit Provider Urology | DX: N32.89 Other specified disorders of bladder (principal); Z96.0 Presence of urogenital implants; Z87.442 Personal history of urinary calculi; I10 Essential (primary) hypertension; F17.210 Nicotine dependence, cigarettes, uncomplicated | CPT/HCPCS: 52310; 81003; 96372; A4217; A4649; C1894; J1580; A9270 ==

== ENCOUNTER → 2024-07-15 | Outpatient (CLI) | payer MEDICAID, SELFPAY ==
--- NOTE | 2024-07-15 14:30 | XR_ITS ---
Examination: Retroperitoneal ultrasound, complete Technique: Multiple high resolution grayscale images of the retroperitoneum obtained, including kidneys and bladder. Exam date and time:July 15, 2024 1445 hours INDICATIONS: History kidney stones, history right hydronephrosis right nephrostomy tube placement FINDINGS: Right kidney 10.1 cm cortex 1.7 cm Negative for any 9.8 cm renal cortex 1.8 cm No hydronephrosis Contracted urinary bladder No prostatomegaly IMPRESSION: Negative for hydronephrosis
== END | disposition home or self-care (01) ==
LOC: CDIM 14:36
PROVIDERS: Referring Provider Urology; Visit Provider Urology
DX: N20.0 Calculus of kidney (principal)
CPT/HCPCS: 76770

== ENCOUNTER → 2024-10-20 | Outpatient (BNVA) | payer MEDICAID, SELFPAY | END | disposition home or self-care (01) | PROVIDERS: PCP Physician Assistant; Referring Provider Physician Assistant; Visit Provider Urology | DX: N40.0 Benign prostatic hyperplasia without lower urinary tract symptoms (principal); I10 Essential (primary) hypertension; E66.01 Morbid (severe) obesity due to excess calories; Z68.39 Body mass index [BMI] 39.0-39.9, adult; Z71.3 Dietary counseling and surveillance; F17.210 Nicotine dependence, cigarettes, uncomplicated; Z87.442 Personal history of urinary calculi | CPT/HCPCS: 81003; 99212; G0463 ==

== ENCOUNTER 2024-10-25 23:43 | Emergency (ER) | payer MEDICAID, SELFPAY ==
[2024-10-25 23:55] VITALS: BP 166/107; PULSE 65; RESP 19; TEMP 36.4; O2SAT 95; BMI 39.3
[2024-10-25 23:56] VITALS: PULSE 69; RESP 20; O2SAT 95
[2024-10-26 00:09] VITALS: BP 158/104; PULSE 59; RESP 16; O2SAT 90
--- NOTE | 2024-10-26 00:33 | PD.EDMALE ---
ED Male Genitalurinary RME/HPI General Chief complaint: Back Pain/Injury Stated complaint: BACK PAIN Time Seen by Provider: 10/26/24 00:02 Arrival date/time: 10/25/24 23:43 RME / HPI RME / HPI Narrative: DR. LOONEY MAIN ED EVALUATION: 34 y/o male with Hx of Kidney Stones BIBA presents to ED c/o right flank pain that radiates to the groin area and sweats x approximately 2 hours. Patient reports Lithotripsy within the last 6 months. States his Urologist, Dr. Caceres, wants to refer him out to Dr. Lau, a Utilization Management Nurse, who can prescribed him a medication to prevent kidney stones. Denies any vomiting. Patient was seen at the Urology clinic 6 days ago for a check-up. Denies Hx of sciatica. No other concerns or coplaints expressed at ths time. Related Data Previous Rx's ?Medication ?Instructions ?Recorded hydrocodone 7.5 mg-acetaminophen 1 tab PO Q8H PRN pain #14 tabs 05/29/24 300 mg tablet cephalexin 500 mg tablet 1,000 mg (2 x 500 mg) PO BID 7 10/26/24 days #28 tabs hydrocodone 10 mg-acetaminophen 1 tab PO Q6H PRN pain #30 tabs 10/26/24 325 mg tablet ibuprofen 800 mg tablet 800 mg PO TID PRN pain #30 tabs 10/26/24 tamsulosin 0.4 mg capsule (Flomax) 0.4 mg PO QDAY #7 caps 10/26/24 Allergies Allergy/AdvReac Type Severity Reaction Status Date / Time clindamycin Allergy Difficulty Verified 10/20/24 10:27 Swallowing Review of Systems Review of Systems Systems Reviewed: All systems reviewed, normal except as documented Past Medical History Past Medical History GENITOURINARY: Positive Kidney Stones ED Exam Narrative Physical exam: Generally patient alert oriented x 3 in mild distress secondary to pain heart is regular rate and rhythm without the rubs or gallops lungs auscultation equal bilaterally abdomen soft bowel sounds present nondistended left lower abdominal tenderness without rebound. No costovertebral angle tenderness. Neurologic exam no focal motor or sensory deficits. Nerves II through XII grossly intact Course Quality Measures none Orders Category Date Time Status CT abdomen pelvis wo con Stat Exams 10/26/24 00:38 Taken BMP [Basic Metabolic Panel] Stat Lab 10/26/24 01:00 Completed CBC Stat Lab 10/26/24 01:00 Completed UA [Urinalysis] Stat Lab 10/26/24 00:47 Completed Ketorolac Inj [Toradol Inj] Med 10/26/24 00:37 Discontinued 30 mg IVP X1 ONE Vital Signs Vital signs: Vital Signs Temperature 97.6 F 10/25/24 23:55 Pulse Rate 65 10/25/24 23:55 Respiratory Rate 19 10/25/24 23:55 Blood Pressure 166/107 H 10/25/24 23:55 Pulse Oximetry (%) 95 10/25/24 23:55 Oxygen Delivery Method Room Air 10/25/24 23:55 Urogenital - Male MDM Narrative MDM Narrative:: Scribe Attestation: I, Anya Brink, am scribing for and in the presence of Dr. Looney. Provider Notation: Although this document has been carefully reviewed, there may still be some phonetic and other typographical errors.? These errors are purely grammatical due to imperfections in the software program and should not be construed in any way to? compromise the substance of the patient's medical care during this visit. I interpreted all labs. There is no leukocytosis or fever. Urine did show some white blood cells and 1+ bacteria. CT scan done the abdomen pelvis without contrast showed a right distal ureteral stone of 6 mm about 1 cm proximal to the ureterovesicular junction. It was also another separate right distal ureteral calculus of 5 mm about 2 cm proximal to the ureteral vesicular junction. There is moderate right-sided hydronephrosis. I attempted to get a hold of the patient's urologist Dr. Caceres who did not return the phone call. Patient will be discharged on Flomax [place] and cephalexin to be taken as prescribed as well as ibuprofen to be taken as prescribed. He has a follow-up with Dr. Caceres his urologist by giving him a phone call tomorrow which is Sunday. Return to ER as needed or if condition worsens. Patient data External records reviewed:: [facility] previous records (Reviewed prior ED records from 05/22/24. Patient was seen for Encounter for wound care.) Clinical information provided by:: patient Social determinants that could affect healthcare access:: none Patient has the following chronic illnesses:: Kidney stones How is presenting disease/condition affected by chronic disease/condition?: exacerbated by Evaluation data The following diagnostics were reviewed and interpreted by me:: lab results and radiology exam(s) Lab and/or radiology exams considered but not ordered:: None Interpretation Summary: RADIOLOGY Abdomen/Pelvis CT: Findings: The lung bases are clear. The liver, gallbladder, pancreas, spleen, and adrenals are unremarkable on this noncontrast study. Calculi are noted in the right distal ureter, measuring 0.6 cm, the calculus is at about 1.0 cm from the ureterovesical junction. Calculus in the right distal ureter measuring 0.5 cm, the calculus is about 2.0 cm from the ureterovesical junction. There is moderate right hydroureteronephrosis. The stones are not visible on the repossession agent image. There are nonobstructing right kidney calculi. No evidence of bowel obstruction. The appendix is within normal limits. There is no mesenteric or retroperitoneal adenopathy. The urinary bladder is nondistended, limited evaluation. There is no free fluid or free air. The osseous structures are unremarkable. Impression: Right ureteral calculi associated with hydroureteronephrosis. Nonobstructing right nephrolithiasis. Medications / Prescriptions Medications or Prescriptions considered but not ordered:: None Medication administrations:: Medication Administration History Discontinued Medications Ketorolac Tromethamine (Ketorolac Inj 30 Mg/Ml Vial) 30 mg IVP X1 ONE Stop: 10/26/24 00:38 Last Admin: 10/26/24 00:45 Dose: 30 mg Documented By: See above Consultations Consultation(s) initiated? (list below): No Diagnosis Urogenital Male Differential Diagnosis: urinary tract infection, inguinal hernia and other (Kidney stone, Sciatica, Pyelonephritis) Most likely diagnosis given after review of the tests above:: None Admission Indicated Admission indicated?: not indicated Explain why admission is indicated or not indicated:: Patient does not meet admission criteria. Admission Request Was there a request for admission?: No Disposition Plan Disposition Plan: Discharge Discharge Attestation Discharge Attestation: The patient and all family members were given an opportunity to ask questions and understood the discharge instructions. Discharge instructions specifically effects, indications for sooner follow up or return to the emergency department, and the expected course of current diagnosis. Patient condition: Stable Discharge Plan Plan Patient Disposition: HOME (Self Care) Prescriptions/Referrals Prescriptions/Med Rec: New cephalexin 500 mg tablet 1,000 mg PO BID 7 Days Qty: 28 0RF ibuprofen 800 mg tablet 800 mg PO TID PRN (Reason: pain) Qty: 30 0RF tamsulosin [Flomax] 0.4 mg capsule 0.4 mg PO QDAY Qty: 7 0RF hydrocodone-acetaminophen 10-325 mg tablet 1 tab PO Q6H MDD 4 PRN (Reason: pain) Qty: 30 0RF No Action hydrocodone-acetaminophen 7.5-300 mg tablet 1 tab PO Q8H MDD 3 PRN (Reason: pain) Qty: 14 0RF Referrals: Debbie العلي MD [Primary Care Provider] - In 1 week Problem List Clinical Impression: Kidney stone Patient/Caregiver Discharge Instructions Print Language: Bulgarian Stand Alone Forms: Leann Award Info., Patient Portal Info Letter
--- NOTE | 2024-10-26 00:38 | XR_ITS ---
Examination: CT abdomen and pelvis without contrast. Coronal 3-D reconstructions. Sagittal 2-D reconstructions. Date and time of exam:October 26, 2024, 0111 hours Comparison May 20, 2024 INDICATIONS: Right flank pain beginning one week ago, history [id number] right hydronephrosis secondary to 12 mm proximal right ureteral calculus noted on CT examinations dating to July 2020 CTDI: vol (mGy): 14.7 DLP: (mGycm): 1041 Technique: Axial images of the abdomen have been obtained, 3 mm slice thickness Intravenous contrast material has not been administered. Low dose protocols were performed. One or more of the following dose reduction techniques were used; automated exposure control, adjustment of the mA and/or KV according to patient size, use of iterative reconstruction technique. Findings: No focal liver or splenic lesions Gallstones No pancreatic or adrenal mass 3 mm right renal calculus 2 mm right renal calculus [id number] right hydronephrosis, 5 mm, 6 mm distal right ureteral calculi Contracted urinary bladder Normal appendix Impression : Mild to moderate right hydronephrosis secondary to 5 mm and 6 mm distal right ureteral calculi
[2024-10-26] MEDS: KETOROLAC INJ 30 MG/ML VIAL IVP (00:45)
[2024-10-26 00:53] LABS: Collection Type, Urine Voided
[2024-10-26 01:08] LABS: Bacteria,Urine 1+; Bilirubin,Urine Negative (Negative); Blood,Urine 1+ (Negative); Clarity,Urine Turbid (Clear/Hazy); Color,Urine Yellow (Lt Yel-Yel); Glucose, Urine Negative (Negative); Ketones,Urine Negative (Negative); Leukocyte Esterase,Urine Positive (Negative); Nitrite,Urine Negative (Negative); PH,Urine 6.5 (5.0-7.0); Protein,Urine 1+ (Neg - Trace); RBC,Urine 16 /hpf (0-3); Specific Gravity,Urine 1.024 (1.001-1.035); Squamous Epithelial Cell,Urine < 1 /hpf (0-5); Urobilinogen,Urine Negative mg/dL (0.0-1.0); WBC,Urine 187 /hpf (0-5)
[2024-10-26 01:09] LABS: Basophils # (Auto) 0.0 Thou/mm3 (0.0-0.2); Basophils % (Auto) 0 % (0-2.5); Eosinophils # (Auto) 0.1 Thou/mm3 (0.0-0.5); Eosinophils % (Auto) 1 % (0-10); Hematocrit 45.7 % (41.0-53.0); Hemoglobin 15.7 g/dL (13.5-16.0); Immature Granulocytes Auto 0.05 Thou/mm3 (0.00-0.00); Lymphocytes # (Auto) 1.2 Thou/mm3 (1.0-4.8); Lymphocytes % (Auto) 10 % (10-50); Mean Corpuscular HGB Conc 34.4 g/dl (31.0-37.0); Mean Corpuscular Hemoglobin 28.4 pg (25.0-35.0); Mean Corpuscular Volume 83 fL (80-100); Monocytes # (Auto) 0.4 Thou/mm3 (0.0-0.8); Monocytes % (Auto) 3 % (0-12); Neutrophils # (Auto) 10.1 Thou/mm3 (1.8-7.7); Neutrophils % (Auto) 85 % (37-80); Nucleated Red Blood Cell # 0.00 Thou/mm3 (0.00-0.00); Nucleated Red Blood Cell % 0 /100 WBC (0); Platelet Count 181 Thou/mm3 (140-440); RDW Standard Deviation 39.9 fL (35.1-43.9); Red Blood Count 5.53 Miln/mm3 (4.50-5.90); White Blood Count 11.9 Thou/mm3 (3.8-10.6)
[2024-10-26 01:23] LABS: Anion Gap 6 (7-16); BUN/Creatinine Ratio 16 Ratio (12-20); Blood Urea Nitrogen 22 mg/dL (9-23); Calcium 9.0 mg/dL (8.3-10.6); Carbon Dioxide 28.7 mMol/L (20.0-31.0); Chloride 109 mMol/L (98-107); Creatinine (Component) 1.4 mg/dL (0.6-1.3); Estimated Creatinine Clearance 103.3 mL/min (>60); Glucose 126 mg/dL (74-106); Osmolality,Calculated 292 (275-295); Potassium 4.0 mMol/L (3.4-5.1); Sodium 144 mMol/L (136-145); eGFR > 60 See Note
[2024-10-26 01:51] VITALS: BP 147/96; PULSE 57; RESP 18; O2SAT 94
[2024-10-26 01:55] VITALS: BP 147/96; PULSE 56; RESP 18; TEMP 36.6; O2SAT 94
--- NOTE | 2024-10-26 02:13 | PRELIM_ITS ---
CT scan of the abdomen and pelvis without intravenous contrast (axial sections with sagittal and coronal reformats) October 26, 2024 0111 hours Clinical History: Abdominal pain Comparison: None. Findings: The lung bases are clear. The liver, gallbladder, pancreas, spleen, and adrenals are unremarkable on this noncontrast study. Calculi are noted in the right distal ureter, measuring 0.6 cm, the calculus is at about 1.0 cm from the ureterovesical junction. Calculus in the right distal ureter measuring 0.5 cm, the calculus is about 2.0 cm from the ureterovesical junction. There is moderate right hydroureteronephrosis. The stones are not visible on the casing in line feeder image. There are nonobstructing right kidney calculi. No evidence of bowel obstruction. The appendix is within normal limits. There is no mesenteric or retroperitoneal adenopathy. The urinary bladder is nondistended, limited evaluation. There is no free fluid or free air. The osseous structures are unremarkable. Impression: Right ureteral calculi associated with hydroureteronephrosis. Nonobstructing right nephrolithiasis. Report Electronically Signed By: Kevon Sanchez 10/26/2024 2:13:13 AM [EST]
[2024-10-26 03:50] VITALS: BP 142/88; PULSE 77; RESP 19; TEMP 36.6; O2SAT 98
== END 2024-10-26 03:52 | disposition home or self-care (01) ==
PROVIDERS: Emergency Provider Emergency Medicine; PCP Family Medicine
DX: N13.2 Hydronephrosis with renal and ureteral calculous obstruction (principal)
CPT/HCPCS: 36415; 74176; 80048; 81001; 85025; 96374; 99283; J1885